=== PATIENT | female | born 1985 | race Caucasian/White ===

== ENCOUNTER 2016-11-03 13:14 | Outpatient (CLI) | payer OTHER ==
[~2016-11-03] VITALS: Ht 162.6 cm; Wt 136.5 kg
[~2016-11-03 13:14] MED LIST: FERR27TA; PREN-39
[2016-11-03 13:37] VITALS: Ht 162.6 cm; Wt 136.5 kg
--- NOTE | 2016-11-03 15:34 | RADRPT ---
PROCEDURE: US OB biophysical profile and ultrasound cervix. CLINICAL INDICATION: decreased movements, labor TECHNIQUE: Multiple sonographic images of the pelvis were obtained. The images were reviewed on a PACS workstation. Transvaginal images of the cervix were obtained. COMPARISON: No prior studies are available for comparison. FINDINGS: The cervix measures 3.7 cm in length. There is a trace amount of fluid within the cervix. There is a single viable intrauterine gestation. Cardiac activity is present with 156 beats per min [place]. There is a transverse maternal left presentation. The placenta is posterior. There is no evidence of placental abruption. There is a normal amount of amniotic fluid with an NJ = 10.1 cm. Biophysical profile: movement 2/2 tone 2/2. breathing 2/2 NJ 2/2 Total 05/23 RPTAT: AA . IMPRESSION: Normal biophysical profile. Cervix length measures 3.7 cm. . .Artur Baldwin MD, MD Date Time Electronically viewed and signed by .Artur Baldwin MD, on 11/03/2016 15:33 .S/
[2016-11-03 15:35] LABS: ADD UMIC YES; URINE BILIRUBIN (Dip) NEGATIVE (NEGATIVE); URINE BLOOD (Dip) 1+ (NEGATIVE); URINE COLOR YELLOW (YELLOW); URINE GLUCOSE (Dip) NEGATIVE (NEGATIVE); URINE KETONES (Dip) TRACE (NEGATIVE); URINE LEUKOCYTE ESTERASE (Dip) 3+ (NEGATIVE); URINE NITRITE (Dip) NEGATIVE (NEGATIVE); URINE TOTAL PROTEIN (Dip) NEGATIVE (NEGATIVE); URINE UROBILINOGEN (Dip) 0.2 E.U./dL (0.1-1.0)
[2016-11-03 15:36] LABS: EOSINOPHILS % 0.2 % (0.0-7.0); HEMATOCRIT 34.4 % (37.0-47.0); HEMOGLOBIN 11.7 g/dl (12.0-16.0); LYMPHOCYTES # 1.1 10^3/ul (0.8-2.9); LYMPHOCYTES % 9.9 % (15.0-51.0); MEAN CORPUSCULAR HEMOGLOBIN 29.8 pg (29.0-33.0); MEAN CORPUSCULAR HGB CONC 34.1 g/dl (32.0-37.0); MEAN CORPUSCULAR VOLUME 87.2 fl (82.0-101.0); MEAN PLATELET VOLUME 8.9 fl (7.4-10.4); MONOCYTE # 0.6 10^3/ul (0.3-0.9); MONOCYTES % 5.5 % (0.0-11.0); NEUTROPHIL # 9.8 10^3/ul (1.6-7.5); NEUTROPHILS % 84.4 % (39.0-77.0); PLATELET COUNT 211 10^3/UL (140-440); RED BLOOD COUNT 3.94 10^6/ul (4.20-5.40); RED CELL DISTRIBUTION WIDTH 14.2 % (11.5-14.5); UNCORRECTED WBC 11.6 10^3/ul (4.8-10.8); WHITE BLOOD COUNT 11.6 10^3/ul (4.8-10.8)
[2016-11-03 15:38] LABS: CONDITION 1
[2016-11-03 15:57] LABS: BACTERIA,URINE MANY; SQUAMOUS EPITHELIAL CELL,UR MANY
--- NOTE | 2016-11-03 17:08 | PN ---
Date/Time of Note Date/Time of Note DATE: 11/03/16 TIME: 16:53 OB Subjective Subjective Subjective Triage consult: This patient is a 31 years old 2 para 1. Came to triage area complaining of abdominal pain for about 2 hours. Her due date is January 16, 2017 which make her now 29 weeks and 3 days. She states that her pain started about an hour and a half ago mostly in her lower abdomen no vaginal bleeding no dysuria no other complete on examination her abdomen is soft heart tone is audible she is fairly obese presentation of the baby appears to be vertex. She did not have any CVA tenderness no rebound tenderness extremities were normal no edema no varicosities due to the fact that she did not have much of the contractions on the tracing pelvic examination was not performed on ultrasound study for biophysical profile was 8 out of 8. NJ was 10.1 cm. Cervical length was 3.7 cm her CBC were basically normal with a hemoglobin of 11.7 hematocrit of 34.4 WBC of 11.6 on urine exam her leukocyte esterase was 3+ urine blood was 1+ her vital signs were basically normal Disp: She was given Macrobid tablet 100 mg #20 to be taken 1 tablet every 12 hours. The urine was sent for urinalysis and culture and sensitivity to change her antibiotic in case of different sensitivity result. Laboratory Tests Test 11/03/16 14:05 11/03/16 15:20 Basophils # 0.010^3/ul Basophils % 0.0% Eosinophils # 0.010^3/ul Eosinophils % 0.2% Hematocrit 34.4% Hemoglobin 11.7g/dl Lymphocytes # 1.110^3/ul Lymphocytes % 9.9% Mean Corpuscular Hemoglobin 29.8pg Mean Corpuscular Hemoglobin Concent 34.1g/dl Mean Corpuscular Volume 87.2fl Mean Platelet Volume 8.9fl Monocytes # 0.610^3/ul Monocytes % 5.5% Neutrophils # 9.810^3/ul Neutrophils % 84.4% Nucleated Red Blood Cells # 0.010^3/ul Nucleated Red Blood Cells % 0.0/100WBC Platelet Count 41169^3/UL Red Blood Count 3.9410^6/ul Red Cell Distribution Width 14.2% White Blood Count 11.610^3/ul Urine Bacteria MANY Urine Bilirubin NEGATIVE Urine Clarity CLOUDY Urine Color YELLOW Urine Glucose NEGATIVE% Urine Hemoglobin 1+ Urine Ketones TRACE Urine Leukocyte Esterase 3+ Urine Microscopic RBC 2-5/HPF Urine Microscopic WBC >200/HPF Urine Nitrite NEGATIVE Urine Specific [place] 1.010 Urine Squamous Epithelial Cells MANY Urine Total Protein NEGATIVE Urine Urobilinogen 0.2 E.U./dL Urine pH 6.0 Due to the fact that she did not have any contractions she was discharged home with instruction to rest at home and return to the clinic to be 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
== END 2016-11-03 17:00 | disposition home or self-care (01) ==
LOC: OBT 13:14 → L-D 13:15 → OBT 17:00
PROVIDERS: ATTEND Obstetrics & Gynecology
DX: O46.93 Antepartum hemorrhage, unspecified, third trimester (principal); O26.893 Other specified pregnancy related conditions, third trimester; R10.9 Unspecified abdominal pain; Z3A.29 29 weeks gestation of pregnancy
CPT/HCPCS: 36415; 76817; 76818; 81001; 81003; 85025; 87086; G0463

== ENCOUNTER 2016-11-27 22:06 | Inpatient (IN) | payer OTHER ==
[~2016-11-27] VITALS: Ht 160 cm; Wt 136.0 kg
[2016-11-27 22:17] VITALS: BP 122/73; PULSE 74; RESP 18
[2016-11-27] MEDS ORDERED: ONDANSETRON 4 MG INJ IV STA (22:23)
[2016-11-27] MEDS ORDERED: LACTATED RINGER'S 1,000 ML IV SCH (22:23)
[2016-11-27 22:28] VITALS: Ht 160 cm; Wt 136.0 kg
[2016-11-27] MEDS ORDERED: ACETAMINOPHEN 1000MG/100ML IV 100 ML IVPB ONE (22:30)
[2016-11-27 23:02] LABS: BASOPHILS % 0.2 % (0.0-2.0); EOSINOPHILS % 0.5 % (0.0-7.0); HEMATOCRIT 33.9 % (37.0-47.0); HEMOGLOBIN 11.6 g/dl (12.0-16.0); LYMPHOCYTES # 1.4 10^3/ul (0.8-2.9); LYMPHOCYTES % 14.8 % (15.0-51.0); MEAN CORPUSCULAR HEMOGLOBIN 30.1 pg (29.0-33.0); MEAN CORPUSCULAR HGB CONC 34.2 g/dl (32.0-37.0); MEAN PLATELET VOLUME 9.3 fl (7.4-10.4); MONOCYTE # 0.7 10^3/ul (0.3-0.9); MONOCYTES % 7.7 % (0.0-11.0); NEUTROPHIL # 7.1 10^3/ul (1.6-7.5); NEUTROPHILS % 76.8 % (39.0-77.0); PLATELET COUNT 203 10^3/UL (140-440); RED BLOOD COUNT 3.86 10^6/ul (4.20-5.40); RED CELL DISTRIBUTION WIDTH 14.4 % (11.5-14.5); UNCORRECTED WBC 9.2 10^3/ul (4.8-10.8); WHITE BLOOD COUNT 9.2 10^3/ul (4.8-10.8)
[2016-11-27 23:03] LABS: CONDITION 1
[2016-11-27 23:06] LABS: ADD UMIC YES; URINE BILIRUBIN (Dip) 3+ (NEGATIVE); URINE BLOOD (Dip) NEGATIVE (NEGATIVE); URINE COLOR AMBER (YELLOW); URINE GLUCOSE (Dip) NEGATIVE (NEGATIVE); URINE KETONES (Dip) TRACE (NEGATIVE); URINE LEUKOCYTE ESTERASE (Dip) 2+ (NEGATIVE); URINE TOTAL PROTEIN (Dip) TRACE (NEGATIVE); URINE UROBILINOGEN (Dip) 1.0 E.U./dL (0.1-1.0)
[2016-11-27 23:24] LABS: ICTOTEST POSITIVE (NEGATIVE)
[2016-11-27 23:25] LABS: URINE NITRITE (Dip) NEGATIVE (NEGATIVE)
[2016-11-27 23:27] LABS: SQUAMOUS EPITHELIAL CELL,UR MODERATE; URINE RBCS 0-2 /HPF (0)
--- NOTE | 2016-11-27 23:41 | RADRPT ---
PROCEDURE: US Abdomen Limited. CLINICAL INDICATION: Right upper quadrant pain TECHNIQUE: Multiple real-time longitudinal and transverse images were acquired of the patient's ri t abdomen and retroperitoneum utilizing a curved array transducer. COMPARISON: None FINDINGS: Pancreas: The pancreas is suboptimally visualized. Liver: There is mild increased echogenicity of the liver with a coarse echotexture. The right hepa tic lobe measures 19.1 cm craniocaudal, which is mildly enlarged. There is no definite focal lesion visualized in the liver. Bile ducts: The intrahepatic bile ducts are not dilated. Common bile duct measures 3.[address], within normal limits. Gallbladder: There are a few small gallstones within the gallbladder. There is no gallbladder wall thickening, pericholecystic fluid, or sonographic [place]'s sign. Kidneys: The right kidney measures 12.2 cm in length. The parenchymal echogenicity and thickness ap pear within normal range. No focal lesions are visualized. No hydronephrosis. There is no ascites visualized in the right abdomen. RPTAT: ZZ IMPRESSION: 1. Cholelithiasis. 2. Mild fatty infiltration of the liver with mild hepatomegaly. .Christiane Monroy MD, Date Time Electronically viewed and signed by .Christiane Monroy MD, on 11/27/2016 23:40 .T/
[2016-11-27 23:44] LABS: ALBUMIN 3.4 g/dl (3.3-4.9); POTASSIUM 3.9 mmol/L (3.5-5.1)
[2016-11-27 23:47] LABS: BILIRUBIN,DIRECT 0.9 mg/dl (0.00-0.20); BILIRUBIN,INDIRECT 0.8 mg/dl (0-1.1); BILIRUBIN,TOTAL 1.7 mg/dl (0.2-1.3); CREATININE 0.42 mg/dl (0.44-1.00); TOTAL PROTEIN 6.8 g/dl (6.1-8.1)
[2016-11-28] MEDS ORDERED: NITR-58 PO (00:49)
[2016-11-28] MEDS ORDERED: UDMYL PO (00:49)
[2016-11-28] MEDS ORDERED: ONDANSETRON 4 MG INJ IV PRN (02:30)
--- NOTE | 2016-11-28 02:37 | HP ---
Date/Time of Note Date/Time of Note DATE: 11/28/16 TIME: 02:26 OB - History Hx of Present Free Text/Dictation Laborist Dr Qiu's pt 31 y.o. with an IUP at 33 weeks c/o RUQ pain x 2 days with nausea and vomiting x 2. No CASTRO, visual changes, vaginal bleeding or leaking.Pt reports she has a UTI but stopped taking the medication since Monday due to not feeling well. PMHx: none. PSHx: none. NKDA. Chief Complaint: Right upper quadrant pain, Nausea/vomiting, IUP at 33 weeks. UTI. Estimated Due Date: Jan 16, 2017 : 2 Para: 1 Care: Other (prenatals not available) Ultrasounds: Other (prenatals not available) Medical Complications: None (gallstones) Past Family/Social History * Past Medical, Surgical, Family and Obstetric Histories reviewed from pt. Prenatals not available. OB Admission Exam Vital Signs Vital Signs Vital Signs Date Time Temp Pulse Resp B/P Pulse Ox O2 Delivery O2 Flow Rate FiO2 11/27/16 22:17 97.7 74 18 122/73 Room Air Physical Exam HEENT: WNL Heart: Rhythm Normal Lungs: Clear Abdomen: Abnormal (slightly tender in RUQ) Reflexes: Normal Last 72 hours Lab Results CBC & BMP 11/27/16 22:40 Liver Function Test 11/27/16 22:40 Alanine Aminotransferase (ALT/SGPT) 39 Albumin 3.4 Alkaline Phosphatase 118 Aspartate Amino Transf (AST/SGOT) 50 H Direct Bilirubin 0.90 H Total Protein 6.8 OB Assessment/Plan Reason for admission: other (IUP at 33 weeks. Gallstones. Hyperbilirubinemia.Undertreated UTI.) Other plan: IV hydration. Pain management. Repeat labs. IV treatment of UTI. Low fat diet. IV Tylenol prn. DANTE MANCUSO MD Nov 28, 2016 02:36
--- NOTE | 2016-11-28 02:54 | TRIAGE ---
OB Triage Datetime Report Generated by CPN: 11/28/2016 02:53 Datetime: 11/28/2016 02:23 Vaginal Exam Membrane Status: Intact Datetime: 11/28/2016 02:20 Stage of : OB Triage Datetime: 11/28/2016 01:00 Labor Evaluation Frequency: NONE Monitor Mode: External Duration (sec)2399: NONE Pattern: Normal: <= 5 Contractions in 10 Minutes Heart Rate FHR Baseline Rate: 130 Monitor Mode: External US FHR Baseline Changes: No Baseline Change Variability: Moderate 6-25 bpm Accelerations: 15X15 Decelerations: None Category: Category I Datetime: 11/28/2016 00:31 Monitor Mode: External US Datetime: 11/28/2016 00:19 Monitor Mode: Palpation Resting Tone [place]: Relaxed Datetime: 11/28/2016 00:18 Monitor Mode: External Monitor Mode: External US Datetime: 11/28/2016 00:17 Pain Presence: None/Denies Pain Type: N/A Pain Assessment Comments: PT. STATES PAIN MEDS WERE EFFECTIVE Datetime: 11/28/2016 00:00 Labor Evaluation Frequency: NONE Monitor Mode: External Duration (sec)2399: NONE Pattern: Normal: <= 5 Contractions in 10 Minutes Heart Rate FHR Baseline Rate: 140 Monitor Mode: External US FHR Baseline Changes: No Baseline Change Variability: Moderate 6-25 bpm Accelerations: 15X15 Decelerations: None Category: Category I Datetime: 11/27/2016 23:41 Pain Assessment Comments: PT. SLEEPING, AROUSABLE TO TOUCH Datetime: 11/27/2016 23:11 Monitor Mode: External US Pain Assessment Pain Scale: 7 Pain Presence: Constant Pain Type: Sharp; Stabbing Pain Relief Measures: Pain Medication Given Datetime: 11/27/2016 23:00 Labor Evaluation Frequency: NONE Monitor Mode: External Duration (sec)2399: NONE Pattern: Normal: <= 5 Contractions in 10 Minutes Heart Rate FHR Baseline Rate: 140 Monitor Mode: External US FHR Baseline Changes: No Baseline Change Variability: Moderate 6-25 bpm Accelerations: 15X15 Decelerations: None Category: Category I Datetime: 11/27/2016 22:18 Assessment Type: Triage Maternal Assessment Level of Consciousness: Fully Conscious DTR's/Clonus: DTRs 2+; No Clonus Headache: Denies Blurred Vision: No Respiratory Effort: Unlabored; Regular Rhythm; Equal Expansion Breath Sounds, Left: Clear and Equal Breath Sounds, Right: Clear and Equal Nausea/Vomiting: Denies RUQ Epigastric Pain: Denies Lower Extremities Edema: None Upper Extremities Edema: None Facial Edema: None Fall Risk Assessment History of Falling: (0) No Secondary Diagnosis: (0) No Ambulatory Aid: (0) Bedrest/Nurse Assist IV Therapy: (0) No Gait: (0) Normal/Bedrest/Immobile Mental Status: (0) Oriented to Own Ability Fall Score: 0 Fall Risk Score Definition: No Risk: No action required Datetime: 11/27/2016 22:15 Monitor Mode: Palpation Resting Tone [place]: Relaxed Contraction Comments: ABD SOFT WITH PALPATION. PT. HAS TENDERNESS OVER RUQ Datetime: 11/27/2016 22:14 Monitor Mode: External (Annotations: MONITORS APPLIED) Monitor Mode: External US (Annotations: MONITORS APPLIED) Datetime: 11/27/2016 22:08 Time of Arrival: 11/27/2016 21:58 EGA: 32.6 Arrived By: Wheelchair Arrived From: Home Chief Complaint: RUQ PAIN SINCE MONDAY Movement: Present Contractions: Denies/Absent Rupture of Membranes: Denies Vaginal Bleeding: None Vaginal Discharge: Denies Recent Sexual Intercouse: Denies Abdominal Trauma: Not Applicable Patient Complaints: Nausea; Vomiting; Epigastric Pain Additional Patient Complaints: N/V X2 Time Provider Notified: 11/27/2016 22:09 Provider Notified: REJANETE Initial Plan: EFM, IV HYDRATION, Datetime: 11/03/2016 16:42 Stage of : OB Triage Datetime: 11/03/2016 16:35 Labor Evaluation Frequency: 0 Monitor Mode: External Resting Tone [place]: Relaxed Heart Rate FHR Baseline Rate: 135 Monitor Mode: External US Variability: Moderate 6-25 bpm Decelerations: None Category: Category I Pain Assessment Pain Scale: 0 Pain Presence: None/Denies Pain Type: N/A Pain Goal: 3 Pain Relief Measures: Comfort Measures Datetime: 11/03/2016 16:01 Stage of : OB Triage Datetime: 11/03/2016 15:46 Labor Evaluation Frequency: 0 Monitor Mode: External Resting Tone [place]: Relaxed Heart Rate FHR Baseline Rate: 135 Monitor Mode: External US Variability: Moderate 6-25 bpm Accelerations: 10X10 Decelerations: None Category: Category I Pain Assessment Pain Scale: 2 Pain Presence: Constant Pain Type: Cramping Pain Location: Abdomen Pain Goal: 3 Pain Relief Measures: Comfort Measures Datetime: 11/03/2016 14:32 Labor Evaluation Frequency: 0 Monitor Mode: External Resting Tone [place]: Relaxed Heart Rate FHR Baseline Rate: 135 Monitor Mode: External US Variability: Moderate 6-25 bpm Decelerations: None Category: Category I Pain Assessment Pain Scale: 3 Pain Presence: Constant Pain Type: Cramping Pain Goal: 3 Pain Relief Measures: Comfort Measures Datetime: 11/03/2016 13:59 Stage of : OB Triage Datetime: 11/03/2016 13:32 Stage of : OB Triage Assessment Type: Triage Maternal Assessment Level of Consciousness: Fully Conscious DTR's/Clonus: DTRs 2+; No Clonus Headache: Denies Blurred Vision: No Respiratory Effort: Unlabored; Regular Rhythm; Equal Expansion Breath Sounds, Left: Clear and Equal Breath Sounds, Right: Clear and Equal Nausea/Vomiting: Denies RUQ Epigastric Pain: Denies Lower Extremities Edema: None Degree: None Upper Extremities Edema: None Degree: None Facial Edema: None Temperature Route: Axillary Fall Risk Assessment History of Falling: (0) No Secondary Diagnosis: (0) No Ambulatory Aid: (0) Bedrest/Nurse Assist IV Therapy: (0) No Gait: (0) Normal/Bedrest/Immobile Mental Status: (0) Oriented to Own Ability Fall Score: 0 Fall Risk Score Definition: No Risk: No action required Labor Evaluation Frequency: 0 Monitor Mode: External Pattern: Normal: <= 5 Contractions in 10 Minutes Resting Tone [place]: Relaxed Heart Rate FHR Baseline Rate: 145 (Annotations: DIFFCULTY TRACING FHT DUE TO GEST AGE AND MATERNAL ) Monitor Mode: External US Variability: Moderate 6-25 bpm Decelerations: None Pain Assessment Pain Scale: 5 Pain Presence: Constant Pain Type: Cramping Pain Location: Abdomen Pain Goal: 3 Pain Relief Measures: Comfort Measures Datetime: 11/03/2016 13:23 Time of Arrival: 11/03/2016 13:00 EGA: 29.3 Chief Complaint: ABDOMINAL PAIN X 1 HR CONSTANT, DENIES BLEEDING OR LEAKING Movement: Present Contractions: Denies/Absent Rupture of Membranes: Denies Vaginal Discharge: Denies Recent Sexual Intercouse: Yes Abdominal Trauma: Not Applicable Patient Complaints: Cramping Time Provider Notified: 11/03/2016 13:59 Provider Notified: RUPAL Initial Plan: MONITOR, CBC, U/A, BPP/NJ, CL
[2016-11-28] MEDS: LACTATED RINGER'S 1,000 ML IV SCH ×3 (03:14→19:00)
[2016-11-28] MEDS: CEFAZOLIN 2 GM/50 ML (PMX) 50 ML IV SCH ×2 (03:18→14:07)
[2016-11-28] MEDS: ACETAMINOPHEN 1000MG/100ML IV 100 ML IVPB SCH ×3 (05:47→18:11)
[2016-11-28] MEDS ORDERED: MULTIVIT/MIN/FOLATE/IRON/PREN TAB PO SCH (09:00)
[2016-11-28 11:31] LABS: BASOPHILS % 0.3 % (0.0-2.0); CONDITION 1; EOSINOPHILS # 0.1 10^3/ul (0.0-0.5); EOSINOPHILS % 0.7 % (0.0-7.0); HEMOGLOBIN 10.9 g/dl (12.0-16.0); LYMPHOCYTES # 1.3 10^3/ul (0.8-2.9); LYMPHOCYTES % 17.1 % (15.0-51.0); MEAN CORPUSCULAR VOLUME 88.1 fl (82.0-101.0); MEAN PLATELET VOLUME 8.9 fl (7.4-10.4); MONOCYTE # 0.5 10^3/ul (0.3-0.9); NEUTROPHIL # 5.9 10^3/ul (1.6-7.5); NEUTROPHILS % 74.9 % (39.0-77.0); PLATELET COUNT 180 10^3/UL (140-440); RED BLOOD COUNT 3.64 10^6/ul (4.20-5.40); RED CELL DISTRIBUTION WIDTH 14.2 % (11.5-14.5); UNCORRECTED WBC 7.8 10^3/ul (4.8-10.8); WHITE BLOOD COUNT 7.8 10^3/ul (4.8-10.8)
[2016-11-28 11:52] LABS: ALBUMIN/GLOBULIN RATIO 1.03; BILIRUBIN,DIRECT 0.8 mg/dl (0.00-0.20); BILIRUBIN,INDIRECT 0.8 mg/dl (0-1.1); BILIRUBIN,TOTAL 1.6 mg/dl (0.2-1.3); CREATININE 0.5 mg/dl (0.44-1.00); TOTAL PROTEIN 5.9 g/dl (6.1-8.1)
[2016-11-28] MEDS ORDERED: AL HYDROX/MG HYDROX/SIMETH 30 ML CUP PO PRN ×2 (15:00→17:30)
[2016-11-28] MEDS ORDERED: FAMOTIDINE 20 MG INJ IV SCH (16:00)
[2016-11-28] MEDS ORDERED: RANITIDINE 50 MG in SOD CHLORIDE 0.9% 50 ML IVPB SCH (16:00)
[2016-11-28 17:21] LABS: ADD UMIC YES; URINE BILIRUBIN (Dip) 1+ (NEGATIVE); URINE BLOOD (Dip) NEGATIVE (NEGATIVE); URINE COLOR LT. YELLOW (YELLOW); URINE GLUCOSE (Dip) NEGATIVE (NEGATIVE); URINE KETONES (Dip) TRACE (NEGATIVE); URINE LEUKOCYTE ESTERASE (Dip) 2+ (NEGATIVE); URINE NITRITE (Dip) NEGATIVE (NEGATIVE); URINE TOTAL PROTEIN (Dip) NEGATIVE (NEGATIVE); URINE UROBILINOGEN (Dip) 0.2 E.U./dL (0.1-1.0)
[2016-11-28 17:31] LABS: ICTOTEST POSITIVE (NEGATIVE); SQUAMOUS EPITHELIAL CELL,UR MODERATE; URINE RBCS 0-2 /HPF (0)
--- NOTE | 2016-11-28 19:05 | DS ---
Date/Time of Note Date/Time of Note DATE: 11/28/16 TIME: 19:03 Obstetrical Discharge Record Final Diagnosis Final Diagnosis: not delivered Other Final Diagnosis gallstones Complications Other (Gallstones ) Condition on Discharge Physical Assessment Last Vitals: see nurses notes Voiding: Yes Bowel Movement: Yes Breast: Soft, non-tender, Filling Fundus: Other (gravid) Abdomen and Incision: soft BS + Episiotomy: NA Calf Tenderness: No Patient Condition: Good JEREMIAH AGUILAR MD Nov 28, 2016 19:05
--- NOTE | 2016-11-28 19:07 | DS ---
Date/Time of Note Date/Time of Note DATE: 11/28/16 TIME: 19:05 Discharge Summary Admission/Discharge Info Admit Date/Time Nov 28, 2016 at 02:20 Discharge Date/Time 11/28/2016 Final Diagnosis Gallstones cholelithiasis Patient Condition: Good Consults dietitian for low fat diet Procedures None Hx of Present Illness 31 y/o female admitted with cholelithiasis and had symptomatic treatment Hospital Course uncomplicated Home Meds Reported Medications Nitrofurantoin Monohyd Macrocr* (Macrobid*) 100 Mg Capsr, 100 MG PO BID, CAP 11/28/16 Magaldrate/Simethicone* (Mag-Al Plus Suspension*) 30 Ml Oral.susp, 30 ML PO Q6H Y for GASTROINTESTINAL UPSET, ML 11/28/16 Ferrous Sulfate (Iron) 1 Tab Tablet 03/30/11 Vits W-Ca,Fe,Fa(<1MG) ( Vitamins) 1 Tab Tablet 03/30/11 Follow-up Plan in clinic for PNC Pending Labs Laboratory Tests Test 11/27/16 22:40 11/28/16 11:09 11/28/16 17:00 Alanine Aminotransferase (ALT/SGPT) 39IU/L (13-69) 48IU/L (13-69) Albumin 3.4g/dl (3.3-4.9) 3.0g/dl (3.3-4.9) Albumin/Globulin Ratio 1.00 1.03 Alkaline Phosphatase 118IU/L (42-121) 108IU/L (42-121) Amylase Level 50U/L (11-123) 34U/L (11-123) Anion Gap 15 (8-16) 12 (8-16) Aspartate Amino Transf (AST/SGOT) 50IU/L (15-46) 49IU/L (15-46) Basophils # 0.010^3/ul (0.0-0.1) 0.010^3/ul (0.0-0.1) Basophils % 0.2% (0.0-2.0) 0.3% (0.0-2.0) Blood Urea Nitrogen 5mg/dl (7-20) 4mg/dl (7-20) Calcium Level 9.0mg/dl (8.4-10.2) 9.0mg/dl (8.4-10.2) Carbon Dioxide Level 23mmol/L (21-31) 25mmol/L (21-31) Chloride Level 104mmol/L (97-110) 105mmol/L (97-110) Creatinine 0.42mg/dl (0.44-1.00) 0.50mg/dl (0.44-1.00) Direct Bilirubin 0.90mg/dl (0.00-0.20) 0.80mg/dl (0.00-0.20) Eosinophils # 0.010^3/ul (0.0-0.5) 0.110^3/ul (0.0-0.5) Eosinophils % 0.5% (0.0-7.0) 0.7% (0.0-7.0) Globulin 3.40g/dl (1.3-3.2) 2.90g/dl (1.3-3.2) Glucose Level 95mg/dl (70-220) 91mg/dl (70-220) Hematocrit 33.9% (37.0-47.0) 32.0% (37.0-47.0) Hemoglobin 11.6g/dl (12.0-16.0) 10.9g/dl (12.0-16.0) Indirect Bilirubin 0.8mg/dl (0-1.1) 0.8mg/dl (0-1.1) Lipase 38U/L (23-300) 28U/L (23-300) Lymphocytes # 1.410^3/ul (0.8-2.9) 1.310^3/ul (0.8-2.9) Lymphocytes % 14.8% (15.0-51.0) 17.1% (15.0-51.0) Mean Corpuscular Hemoglobin 30.1pg (29.0-33.0) 30.0pg (29.0-33.0) Mean Corpuscular Hemoglobin Concent 34.2g/dl (32.0-37.0) 34.0g/dl (32.0-37.0) Mean Corpuscular Volume 88.0fl (82.0-101.0) 88.1fl (82.0-101.0) Mean Platelet Volume 9.3fl (7.4-10.4) 8.9fl (7.4-10.4) Monocytes # 0.710^3/ul (0.3-0.9) 0.510^3/ul (0.3-0.9) Monocytes % 7.7% (0.0-11.0) 7.0% (0.0-11.0) Neutrophils # 7.110^3/ul (1.6-7.5) 5.910^3/ul (1.6-7.5) Neutrophils % 76.8% (39.0-77.0) 74.9% (39.0-77.0) Nucleated Red Blood Cells # 0.010^3/ul (0.0-0.0) 0.010^3/ul (0.0-0.0) Nucleated Red Blood Cells % 0.0/100WBC (0.0-0.0) 0.0/100WBC (0.0-0.0) Platelet Count 73517^3/UL (140-440) 95272^3/UL (140-440) Potassium Level 3.9mmol/L (3.5-5.1) 4.0mmol/L (3.5-5.1) Red Blood Count 3.8610^6/ul (4.20-5.40) 3.6410^6/ul (4.20-5.40) Red Cell Distribution Width 14.4% (11.5-14.5) 14.2% (11.5-14.5) Sodium Level 138mmol/L (135-144) 138mmol/L (135-144) Total Bilirubin 1.7mg/dl (0.2-1.3) 1.6mg/dl (0.2-1.3) Total Protein 6.8g/dl (6.1-8.1) 5.9g/dl (6.1-8.1) Urine Amorphous Urates MODERATE Urine Bilirubin 3+ (NEGATIVE) 1+ (NEGATIVE) Urine Clarity SLIGHTLY CLOUDY (CLEAR) CLEAR (CLEAR) Urine Color RADHA (YELLOW) LT. YELLOW (YELLOW) Urine Glucose NEGATIVE% (NEGATIVE) NEGATIVE% (NEGATIVE) Urine Hemoglobin NEGATIVE (NEGATIVE) NEGATIVE (NEGATIVE) Urine Ictotest POSITIVE (NEGATIVE) POSITIVE (NEGATIVE) Urine Ketones TRACE (NEGATIVE) TRACE (NEGATIVE) Urine Leukocyte Esterase 2+ (NEGATIVE) 2+ (NEGATIVE) Urine Microscopic RBC 0-2/HPF (0) 0-2/HPF (0) Urine Microscopic WBC 2-5/HPF (0) 10-25/HPF (0) Urine Nitrite NEGATIVE (NEGATIVE) NEGATIVE (NEGATIVE) Urine Specific [place] 1.025 (1.003-1.030) 1.010 (1.003-1.030) Urine Squamous Epithelial Cells MODERATE MODERATE Urine Total Protein TRACE (NEGATIVE) NEGATIVE (NEGATIVE) Urine Urobilinogen 1.0 E.U./dL (0.1-1.0) 0.2 E.U./dL (0.1-1.0) Urine pH 7.5 (5.0-9.0) 7.5 (5.0-9.0) White Blood Count 9.210^3/ul (4.8-10.8) 7.810^3/ul (4.8-10.8) JEREMIAH AGUILAR MD Nov 28, 2016 19:07
--- NOTE | 2016-11-28 19:10 | PD.PPDC ---
[employer] Discharge Instruction Provider Information Physician Information 31 y/o femlae admitted for cholelithiasis and had symptomatic treatment Diagnosis Final Diagnosis: cholelithiasis Condition Patient Condition: Good Diet Diet: Special Diet Special Diet: low fat and low cholesterol Activity/Restrictions Activity: Normal Activity May Shower Follow-up Follow-up with Physician: 2, 4, Day/Days (in clinic) Return to clinic for Comment: worsening abdominal paind and N/V JEREMIAH AGUILAR MD Nov 28, 2016 19:10
== END 2016-11-28 20:15 | disposition home or self-care (01) | DRG 781 ==
LOC: OBT 22:06 → L-D 22:07 → OBT 11-28 02:20 → OBG 11-28 02:20
PROVIDERS: ADMIT Obstetrics & Gynecology; ATTEND Obstetrics & Gynecology
DX: O99.613 Diseases of the digestive system complicating pregnancy, third trimester (principal); Z3A.30 30 weeks gestation of pregnancy
CPT/HCPCS: 36415; 76705; 80053; 81001; 81003; 82150; 83690; 85025; 96360; 96361; 96375; G0463; J0131; J0690; J2405; J2780; J7120

== ENCOUNTER 2016-12-05 04:12 | Inpatient (IN) | payer OTHER ==
[~2016-12-05] VITALS: Ht 160 cm; Wt 134.0 kg
[~2016-12-05 04:12] MED LIST changes: +UDMYL PO
[2016-12-05 04:18] VITALS: BP 114/64; PULSE 83; RESP 18; Ht 160 cm; Wt 134.0 kg
[2016-12-05] MEDS ORDERED: CALC200T26 PO (04:24)
[2016-12-05] MEDS ORDERED: FAMO-95 PO (04:24)
[2016-12-05] MEDS ORDERED: ACET500T98 PO (04:24)
[2016-12-05] MEDS ORDERED: KETOROLAC 30 MG INJ IV STA (04:56)
[2016-12-05] MEDS ORDERED: LACTATED RINGER'S 500 ML IV ONE (05:00)
[2016-12-05] MEDS ORDERED: ACETAMINOPHEN 1000MG/100ML IV 100 ML IVPB ONE (05:00)
[2016-12-05] MEDS ORDERED: LACTATED RINGER'S 1,000 ML IV SCH (05:00)
[2016-12-05 07:59] LABS: ALBUMIN 3.4 g/dl (3.3-4.9); POTASSIUM 4.2 mmol/L (3.5-5.1)
[2016-12-05 08:01] LABS: CREATININE 0.48 mg/dl (0.44-1.00)
[2016-12-05 08:02] LABS: ALBUMIN/GLOBULIN RATIO 1.03; BILIRUBIN,DIRECT 1.7 mg/dl (0.00-0.20); BILIRUBIN,INDIRECT 0.6 mg/dl (0-1.1); BILIRUBIN,TOTAL 2.3 mg/dl (0.2-1.3); CALCIUM 9.2 mg/dl (8.4-10.2); TOTAL PROTEIN 6.7 g/dl (6.1-8.1)
[2016-12-05] MEDS: LACTATED RINGER'S 1,000 ML IV SCH ×2 (08:30→16:17)
[2016-12-05] MEDS ORDERED: MEPERIDINE 50 MG INJ IV PRN (11:30)
[2016-12-05] MEDS ORDERED: AL HYDROX/MG HYDROX/SIMETH 30 ML CUP PO PRN (11:30)
[2016-12-05] MEDS: FAMOTIDINE 20 MG INJ IV SCH ×2 (11:49→21:07)
--- NOTE | 2016-12-05 12:36 | RADRPT ---
PROCEDURE: US Abdomen. CLINICAL INDICATION: abdominal pain TECHNIQUE: Multiple real-time images were acquired of the patient's right upper quadrant abdomen a nd retroperitoneum utilizing a high resolution transducer. COMPARISON: 11/27/2016 FINDINGS: The liver demonstrates normal echogenicity. The liver is normal in size and no focal solid lesions are seen. The liver measures 17.6 cm in length. The portal vein is patent with normal direction of f low. No intrahepatic biliary dilatation is seen. The gallbladder is moderately distended. Multiple gallstones are identified within the gallbladder. There is no pericholecystic fluid or gallbladder wall thickening. The common bile duct measures 10 mm in maximal dimension. The visualized portions of the pancreas are unremarkable. The tail of the pancreas is not seen. No free fluid is identified. The right kidney is normal in size, and demonstrate normal echogenicity and cortical thickness. The right kidney measures 12 cm in long dimension. There is no evidence of hydronephrosis. There are n o kidney stones. RPTAT: AA IMPRESSION: Cholelithiasis with no evidence of gallbladder wall thickening or pericholecystic fluid. New dilatation of the CBD measuring 10 mm. .Artur Baldwin MD, Date Time Electronically viewed and signed by .Artur Baldwin MD, MD on 12/05/2016 12:35 .S/
[2016-12-05 13:05] LABS: BASOPHILS % 0.3 % (0.0-2.0); EOSINOPHILS # 0.1 10^3/ul (0.0-0.5); EOSINOPHILS % 0.8 % (0.0-7.0); HEMATOCRIT 34.1 % (37.0-47.0); HEMOGLOBIN 11.6 g/dl (12.0-16.0); LYMPHOCYTES # 1.2 10^3/ul (0.8-2.9); LYMPHOCYTES % 16.3 % (15.0-51.0); MEAN CORPUSCULAR VOLUME 88.3 fl (82.0-101.0); MEAN PLATELET VOLUME 8.4 fl (7.4-10.4); MONOCYTE # 0.5 10^3/ul (0.3-0.9); MONOCYTES % 7.1 % (0.0-11.0); NEUTROPHIL # 5.4 10^3/ul (1.6-7.5); NEUTROPHILS % 75.5 % (39.0-77.0); PLATELET COUNT 185 10^3/UL (140-440); RED BLOOD COUNT 3.86 10^6/ul (4.20-5.40); RED CELL DISTRIBUTION WIDTH 14.8 % (11.5-14.5); UNCORRECTED WBC 7.1 10^3/ul (4.8-10.8); WHITE BLOOD COUNT 7.1 10^3/ul (4.8-10.8)
[2016-12-05 13:08] LABS: CONDITION 1; LH ANALYZER COMMENTS 1
[2016-12-05] MEDS ORDERED: MAGNESIUM SULFATE 20 GM/500 ML 500 ML IV SCH (17:58)
--- NOTE | 2016-12-05 17:58 | HP ---
Date/Time of Note Date/Time of Note DATE: 12/05/16 TIME: 17:49 OB - History Hx of Present Free Text/Dictation 31 y/o female G 1 P0 at 34 weeks C/O gradual worsening R upper quadrant abdominal pain since Monday associated with N/V for the first day . Pain became worse and worse until her referral on 12/04/2016 to Triage Chief Complaint: Patient onset vaginal bleeding on return from bathroom Estimated Due Date: Jan 16, 2017 : 2 Para: 1 Care: Good Care Ultrasounds: Normal mid trimester US Obstetrical Complications: Other (previous C/S X 1 ) Medical Complications: Other (Gallstones and cholelithiasis) Past Family/Social History * Past Medical, Surgical, Family and Obstetric Histories reviewed from chart. Blood Type: A+ Rubella: immune RPR/VDRL: Negative GBS Status: Unknown HBsAG: Negative OB Admission Exam Vital Signs Vital Signs Vital Signs Date Time Temp Pulse Resp B/P Pulse Ox O2 Delivery O2 Flow Rate FiO2 12/05/16 04:18 97.8 83 18 114/64 Room Air Physical Exam HEENT: WNL Heart: Rhythm Normal Lungs: Clear, Equal Abdomen: WNL Extremities: Normal Reflexes: Normal Cervical Dilatation: None Effacement: 0% Station: -3 Membranes: Intact Heart Rate: 150's Accelerations: Accelerations Present Decelerations: No Decelerations Varibility: Moderate Contractions on Admission: None Last 72 hours Lab Results CBC & BMP 12/05/16 07:38 12/05/16 12:41 Liver Function Test 12/05/16 07:38 Alanine Aminotransferase (ALT/SGPT) 116 H Albumin 3.4 Alkaline Phosphatase 150 H Aspartate Amino Transf (AST/SGOT) 136 H Direct Bilirubin 1.70 H Total Protein 6.7 OB Assessment/Plan Other Assessment: cholelithiasis at 34 weeks abrupt onset of vaginal bleeding ? abruption Other plan: Start on magnesium sulfate keep NPO sor NOW change IV to D5 LR JEREMIAH AGUILAR MD Dec 05, 2016 17:58
[2016-12-05] MEDS ORDERED: BETAMET NA PHOS/AC(6 MG/ML) 5ML INJ IM SCH (18:00)
[2016-12-05] MEDS ORDERED: MAGNESIUM SULFATE 4 GM/100 ML 100 ML IV ONE ×2 (18:00)
[2016-12-05] MEDS ORDERED: ACETAMINOPHEN 325 MG TAB PO PRN (18:00)
[2016-12-05] MEDS: DEXTROSE 5%-LR 1,000 ML IV SCH (18:09)
[2016-12-05] MEDS: BETAMET NA PHOS/AC(6 MG/ML) 5ML INJ IM SCH (18:15)
[2016-12-05] MEDS: MAGNESIUM SULFATE 20 GM/500 ML 500 ML IV SCH (18:17)
[2016-12-05] MEDS ORDERED: SENNA TAB PO PRN (21:00)
[2016-12-05] MEDS: MAGNESIUM HYDROXIDE 30ML CUP PO SCH (21:07)
[2016-12-05] MEDS: PIPER-TAZO 3.375 GM IV (PMX) 100 ML IVPB SCH (22:07)
--- NOTE | 2016-12-05 23:25 | RADRPT ---
PROCEDURE: US biophysical profile. CLINICAL INDICATION: labor, bleeding TECHNIQUE: Multiple sonographic images of the pelvis were obtained. The images were reviewed on a PACS workstation. COMPARISON: No prior studies are available for comparison. FINDINGS: There is a single viable intrauterine gestation. The amniotic fluid index measures 10.1 cm. The ce rvix is measured at 3.7 cm, without funneling or dilation. The heart rate measures 157 beats per minute. There is a posterior placenta, grade 1 to II. The air fluid index is within normal virk its, 10.1 cm. Results of the biophysical profile are as follows breathing movement = 2/2 Gross body movement = 2/2 tone = 2/2 Quantitative amniotic fluid volume = 2/2. This yields a biophysical profile score of 8/8. IMPRESSION: Single viable intrauterine gestation, with biophysical profile of 8/8. Amniotic fluid index, 10.1 cm . RPTAT: HBST .Tommy Cm MD, Date Time Electronically viewed and signed by .Tommy Cm MD, MD on 12/05/2016 23:25 .T/
[2016-12-06] MEDS: LACTATED RINGER'S 1,000 ML IV SCH (00:05)
[2016-12-06] MEDS: AL HYDROX/MG HYDROX/SIMETH 30 ML CUP PO SCH ×3 (02:57→16:48)
[2016-12-06] MEDS: MAGNESIUM SULFATE 20 GM/500 ML 500 ML IV SCH ×2 (03:48→13:24)
[2016-12-06] MEDS: PIPER-TAZO 3.375 GM IV (PMX) 100 ML IVPB SCH ×3 (06:03→22:00)
[2016-12-06 06:19] LABS: BASOPHILS % 0.3 % (0.0-2.0); HEMATOCRIT 34.1 % (37.0-47.0); HEMOGLOBIN 11.8 g/dl (12.0-16.0); LYMPHOCYTES % 10.3 % (15.0-51.0); MEAN CORPUSCULAR HEMOGLOBIN 30.3 pg (29.0-33.0); MEAN CORPUSCULAR HGB CONC 34.7 g/dl (32.0-37.0); MEAN CORPUSCULAR VOLUME 87.4 fl (82.0-101.0); MEAN PLATELET VOLUME 9.3 fl (7.4-10.4); MONOCYTE # 0.3 10^3/ul (0.3-0.9); MONOCYTES % 3.2 % (0.0-11.0); NEUTROPHIL # 8.6 10^3/ul (1.6-7.5); NEUTROPHILS % 86.2 % (39.0-77.0); PLATELET COUNT 205 10^3/UL (140-440); RED CELL DISTRIBUTION WIDTH 14.7 % (11.5-14.5)
[2016-12-06 06:21] LABS: CONDITION 1; LH ANALYZER COMMENTS 1
[2016-12-06 06:26] LABS: ALBUMIN 3.4 g/dl (3.3-4.9); POTASSIUM 4.3 mmol/L (3.5-5.1)
[2016-12-06 06:28] LABS: CREATININE 0.48 mg/dl (0.44-1.00)
[2016-12-06 06:29] LABS: ALBUMIN/GLOBULIN RATIO 1.3; BILIRUBIN,DIRECT 2.2 mg/dl (0.00-0.20); BILIRUBIN,INDIRECT 0.9 mg/dl (0-1.1); BILIRUBIN,TOTAL 3.1 mg/dl (0.2-1.3)
[2016-12-06] MEDS: FAMOTIDINE 20 MG INJ IV SCH ×2 (09:05→21:05)
[2016-12-06] MEDS: MAGNESIUM HYDROXIDE 30ML CUP PO SCH ×2 (09:12→21:05)
[2016-12-06] MEDS: DEXTROSE 5%-LR 1,000 ML IV SCH (09:12)
[2016-12-06] MEDS ORDERED: ONDANSETRON 4 MG INJ IV PRN (12:30)
--- NOTE | 2016-12-06 15:24 | PN ---
Date/Time of Note Date/Time of Note DATE: 12/06/16 TIME: 15:19 Assessment/Plan VTE Prophylaxis VTE Prophylaxis Intervention: ambulation Lines/Catheters IV Catheter Type (from Nrsg): Peripheral IV Assessment/Plan Assessment/Plan CBD dilatation: possible obstruction Vaginal bleeding : ? contractions and or ? abruption: doubt both will Obtain GI and GS consult MRCP is ordered Subjective 24 Hr Interval Summary Free Text/Dictation No more C/O vaginal bleeding No C/O abdominal pain feels Hungry Constitutional: improved, no complaints Eyes: no complaints ENT: no complaints Respiratory: no complaints Cardiovascular: no complaints Gastrointestinal: no complaints Genitourinary: no complaints Musculoskeletal: no complaints Skin: no complaints Neurologic: no complaints Endocrine: no complaints Lymphatic: no complaints Psychological: nl mood/affect, no complaints Immunologic: no complaints Exam/Review of Systems Vital Signs Vitals Vital Signs Date Time Temp Pulse Resp B/P Pulse Ox O2 Delivery O2 Flow Rate FiO2 12/05/16 04:18 97.8 83 18 114/64 Room Air Intake and Output 12/05/16 12/05/16 12/06/16 15:00 23:00 07:00 Intake Total 1875 ml 900 ml 1265 ml Output Total 400 ml 1650 ml Balance 1475 ml 900 ml -385 ml Exam Abdomen: soft BS + GOT and GPT are up WBC: UP with with left shift CBD is dilated Constitutional: alert, oriented, well developed Psych: nl mood/affect, no complaints Head: atraumatic, normocephalic Eyes: EOMI, PERRL, nl conjunctiva, nl lids, nl sclera ENMT: nl external ears & nose, nl lips & teeth, nl nasal mucosa & septum Neck: non-tender, supple Respiratory: clear to auscultation, normal air movement Cardiovascular: nl pulses, regular rate and rhythm Gastrointestinal: nl liver, spleen, non-tender, soft Musculoskeletal: nl extremities to inspection, nl gait and stance Extremities: normal pulses Neurological: GRAIN OPERATOR II-XII intact, nl mental status, nl speech, nl strength Skin: nl turgor, No rash or lesions Lymph: nl lymph nodes Results Result Diagram: 12/06/16 0544 12/06/16 0544 Results 24 hrs Laboratory Tests Test 12/05/16 23:50 12/06/16 05:44 12/06/16 12:57 Magnesium Level 3.6 H 4.3 H 4.4 H Alanine Aminotransferase (ALT/SGPT) 178 H Albumin 3.4 Albumin/Globulin Ratio 1.30 Alkaline Phosphatase 169 H Anion Gap 18 H Aspartate Amino Transf (AST/SGOT) 236 H Basophils # 0.0 Basophils % 0.3 Blood Morphology Comment Blood Urea Nitrogen 2 L Calcium Level 8.0 L Carbon Dioxide Level 19 L Chloride Level 104 Creatinine 0.48 Direct Bilirubin 2.20 #H Eosinophils # 0.0 Eosinophils % 0.0 Globulin 2.60 Glucose Level 96 Hematocrit 34.1 L Hemoglobin 11.8 L Indirect Bilirubin 0.9 Lymphocytes # 1.0 Lymphocytes % 10.3 L Mean Corpuscular Hemoglobin 30.3 Mean Corpuscular Hemoglobin Concent 34.7 Mean Corpuscular Volume 87.4 Mean Platelet Volume 9.3 Monocytes # 0.3 Monocytes % 3.2 Neutrophils # 8.6 H Neutrophils % 86.2 H Nucleated Red Blood Cells # 0.0 Nucleated Red Blood Cells % 0.0 Platelet Count 205 Potassium Level 4.3 Red Blood Count 3.90 L Red Cell Distribution Width 14.7 H Sodium Level 137 Total Bilirubin 3.1 H Total Protein 6.0 L White Blood Count 10.0 # Medications Medications Current Medications Lactated Ringer's (Lr) 1,000 ml @ 125 mls/hr Q8H IV Last administered on 16:17; Admin Dose 125 MLS/HR; Start 12/05/16 at 08:16 Al Hydrox/Mg Hydrox/Simethicone (Mag-Al Plus) 30 ml Q6H PRN PO GASTROINTESTINAL UPSET; Start 12/05/16 at 11:30 Famotidine (Pepcid Iv) 20 mg BID IV Last administered on 12/06/16 09:05; Admin Dose 20 MG; Start 12/05/16 at 11:30 Meperidine HCl 50 mg 50 mg Q4H PRN IV PAIN; Start 12/05/16 at 11:30 Piperacillin Sod/ Tazobactam Sod 100 ml @ 200 mls/hr Q8 IVPB Last administered on 12/06/16 13:25; Admin Dose 200 MLS/HR; Start 12/05/16 at 22:00 Dextrose/Lactated Ringer's 1,000 ml @ 75 mls/hr [id number] IV Last administered on 12/06/16 09:12; Admin Dose 75 MLS/HR; Start 12/05/16 at 17:55 Magnesium Sulfate (Magnesium Sulfate 20 Gm/500 ml) 500 ml @ 50 mls/hr Q10H IV Last administered on 12/06/16 13:24; Admin Dose 50 MLS/HR; Start 12/05/16 at 17 :55 Betamethasone Acet/Betameth SodPhos (Celestone Soluspan) 12 mg Q24H IM Last administered on 12/05/16 18:15; Admin Dose 12 MG; Start 12/05/16 at 18:00; Stop 12/06/16 at 18:01 Acetaminophen (Tylenol Tab) 650 mg Q4H PRN PO PAIN AND OR ELEVATED TEMP Last administered on 12/05/16 21:08; Admin Dose 650 MG; Start 12/05/16 at 18:00 Senna (Senokot) 2 tab BID PRN PO CONSTIPATION Last administered on 12/05/16 21 :07; Admin Dose 2 TAB; Start 12/05/16 at 21:00 Al Hydrox/Mg Hydrox/Simethicone (Mag-Al Plus) 30 ml Q12 PO Last administered on 12/06/16 02:57; Admin Dose 30 ML; Start 12/06/16 at 03:00 Magnesium Hydroxide (Milk Of Mag) 30 ml Q12H PO Last administered on 12/06/16 09:12; Admin Dose 30 ML; Start 12/05/16 at 21:00 Ondansetron HCl (Zofran Inj) 4 mg Q6H PRN IV NAUSEA AND/OR VOMITING Last administered on 12/06/16 12:49; Admin Dose 4 MG; Start 12/06/16 at 12:30 JEREMIAH AGUILAR MD Dec 06, 2016 15:24
--- NOTE | 2016-12-06 16:13 | CONS ---
[facility] INITIAL INPATIENT CONSULTATION NOTE DATE OF CONSULTATION: 12/06/2016 PLACE OF SERVICE: Second floor [facility]. ASSESSMENT AND PLAN: A very pleasant 31-year-old young lady with a few co- morbidities including BMI of 52.3 and previous , who is 34 weeks during her second and showing signs that could be consistent with choledocholithiasis. The available images indicate dilated common bile duct at 10 mm, but no obvious evidence of cholecystitis. Her clinical picture also argues against an obvious cholecystitis. The elevation in liver function and injury parameters could be seen in , although given the constellation of symptoms, I do think there is enough indication for us to recommend an MRCP and gastroenterology evaluation as well. If the patient shows to have choledocholithiasis that is symptomatic, then the next step would be an ERCP. Currently, I do not see any indication for acute surgical intervention, but I have strongly recommended that the patient undergoes an elective laparoscopic cholecystectomy approximately 4 to 6 weeks after delivery of her child. I explained all of this in detail with the patient and answered all her questions to the best of my ability. No other family member was present in the room while I discussed the picture with her. The patient appeared to understand and agreed with the plans. With above assessment, I recommended the followin. MRCP. 2. Gastroenterology consultation. 3. Keep in-house with treatment of symptoms. 4. Check labs. 5. I will follow the patient along with you. Thank you again for allowing us to participate in the care of this very pleasant lady and, I am certain, her wonderful family. If there are any questions, please feel free to call me at [phone]. TOTAL VISIT TIME: 45 minutes of which more than half was spent in [id number] discussion with the patient as well as coordination of care between multiple physicians and providers. UPDATED CLINICAL SUMMARY: A very pleasant 31-year-old lady, G2, P1, at 34 weeks , admitted with abdominal pain and rising liver function tests and liver injury parameters. Patient with 2 other visits and a brief admission 11/28/2016 to [facility] with abdominal pain as well. White blood cell count 10.0, platelets 205, CO2 19, creatinine 0.48. Total bilirubin 3.1, AST 236, ALT 178, alkaline phosphatase 169, total protein 6 and albumin 3.4 on 12/06/2016. Lipase 30 on admission. Hepatitis B surface antigen negative. Right upper quadrant ultrasound 05/04/2017 showed cholelithiasis with no obvious gallbladder wall thickening or pericholecystic fluid. Common bile duct measured at 10 mm. CO-MORBIDITIES: 1. Second , 34 weeks. 2. BMI 52.3. 3. History of abdominal pain and known cholelithiasis. 4. Status post . DATE OF ADMISSION: 12/05/2016 HISTORY OF PRESENT ILLNESS: Patient is a very pleasant 31-year-old lady, 34 weeks on her second , whom we were kindly asked to consult regarding evaluation and management of noted rise in alkaline phosphatase and AST and ALT in the setting of and known cholelithiasis. Patient reported having abdominal pain that was worsened over the last few days, more than her normal. This was associated with nausea and vomiting and in the right upper quadrant without significant radiation. Her symptoms that prompted admission on 11/28/2016 and a prompt discharge also were similar. She has never been told that she has gallbladder or biliary disease in the past. No other major complaints at this time, including no pain, given pain medications. No reported cardiopulmonary disease. No changes in bowel or bladder habits. No difficulty with appetite. She has been on a low fat diet since a few weeks ago, and the food does not seem to change her symptoms. ALLERGIES: NO KNOWN DRUG ALLERGIES. MEDICATIONS: 1. Tylenol. 2. Calcium carbonate. 3. Pepcid. 4. Iron. 5. vitamins. SOCIAL HISTORY: The patient lives with her family and does not report any smoking, drinking, or intravenous drug use. FAMILY HISTORY: No major reported medical, surgical, or oncologic problems in the family. REVIEW OF SYSTEMS: Other than the above-mentioned, there are no other pertinent positives or pertinent negatives in a complete 14-point review of systems. PHYSICAL EXAMINATION: GENERAL: The patient appears to be a very pleasant lady of descent, appearing stated age, lying in bed comfortably and in no acute distress. BMI is 52.3. VITAL SIGNS: Temperature 97.8. Blood pressure 114/64, pulse 83, respiratory rate 18. HEENT: Normocephalic and atraumatic. Extraocular muscles and hearing are grossly intact bilaterally and symmetrically. Sclerae are nonicteric. Oral cavity is clear; oral mucosa appeared to be pink and moist. Dentition: fair. NECK: Supple. There is no lymphadenopathy or JVD. There is no submental, submandibular or supraclavicular lymphadenopathy. CHEST: Rises symmetrically with each breath; patient is breathing comfortably. There are no audible wheezes, rales or rhonchi on the gross exam. HEART: Pulse is regular and palpable on the left wrist. Capillary refill was normal. Carotid pulses are palpable bilaterally and symmetrically in the neck. EXTREMITIES: Lower extremities contain no pitting edema around the ankles bilaterally and symmetrically. ABDOMEN: Protuberant and obviously . No significant tenderness to palpation and otherwise soft. There is no evidence of organomegaly or ascites. No peritoneal signs or guarding. SKIN: Appears to be pink and feels warm to touch. NEUROLOGIC: Awake, alert, and follows commands appropriately. LABORATORY VALUES: Reviewed above. IMAGING: Pertinent images reviewed above. Dictated By: THERESA HUDSON/CODY Conf#: [id number] DID#: [id number] MTDD
[2016-12-06] MEDS: BETAMET NA PHOS/AC(6 MG/ML) 5ML INJ IM SCH (18:41)
--- NOTE | 2016-12-06 19:03 | RADRPT ---
PROCEDURE: US OB biophysical profile. CLINICAL INDICATION: decreased movements, vaginal discharge TECHNIQUE: Multiple sonographic images of the pelvis were obtained. The images were reviewed on a PACS workstation. COMPARISON: 12/06/2016 FINDINGS: There is a single viable intrauterine gestation. Cardiac activity is present with 126 beats per min bridget. There is a vertex presentation. The placenta is anterior. There is no evidence of placental abruption. There is a normal amount of amniotic fluid with an NJ = 10.2 cm. Biophysical profile: movement 2/2 tone 2/2. breathing 2/2 NJ 2/2 Total 05/23 RPTAT: AA . IMPRESSION: Normal biophysical profile. . .Artur Baldwin MD, MD Date Time Electronically viewed and signed by .Artur Baldwin MD, on 12/06/2016 19:02 .S/
--- NOTE | 2016-12-06 19:05 | CONS ---
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 Pt states that symptoms started MondayNov 27 gradually. She states that symptoms began gradually and continued to worsened. Pt first presented that day and was treated in ED and discharged for symptoms after one day. Pt states that symptoms improved and gradually returned the following Monday. She states that symptoms again worsened and she returned to ED on Monday and later admitted. Pt denies previous episode of cholelithiasis or cholecystitis. Pt denies fever, chills, diarrhea, sick contacts, and travel outside [place]. Constitutional: improved, no complaints Eyes: no complaints ENT: no complaints Respiratory: no complaints Cardiovascular: no complaints Gastrointestinal: no complaints Genitourinary: no complaints Musculoskeletal: no complaints Skin: no complaints Neurologic: no complaints Endocrine: no complaints Lymphatic: no complaints Psychological: nl mood/affect, no complaints Immunologic: no complaints Past Surgical History Past Surgical Hx: no surgical history Social History Alcohol Use: none Smoking Status: Never smoker Exam/Review of Systems Vital Signs Vitals Vital Signs Date Time Temp Pulse Resp B/P Pulse Ox O2 Delivery O2 Flow Rate FiO2 12/05/16 04:18 97.8 83 18 114/64 Room Air Intake and Output 12/05/16 12/05/16 12/06/16 15:00 23:00 07:00 Intake Total 1875 ml 900 ml 1265 ml Output Total 400 ml 1650 ml Balance 1475 ml 900 ml -385 ml Exam Constitutional: alert, obese, oriented, well developed Psych: nl mood/affect, no complaints Head: atraumatic Eyes: EOMI, nl conjunctiva, nl lids, nl sclera ENMT: nl external ears & nose, nl lips & teeth, nl nasal mucosa & septum Respiratory: normal air movement Cardiovascular: regular rate and rhythm Gastrointestinal: non-tender, soft Musculoskeletal: nl extremities to inspection Neurological: BELT SEWER II-XII intact Results Result Diagram: 12/06/16 0544 12/06/16 0544 Results 24 hrs Laboratory Tests Test 12/05/16 23:50 12/06/16 05:44 12/06/16 12:57 Magnesium Level 3.6 H 4.3 H 4.4 H Alanine Aminotransferase (ALT/SGPT) 178 H Albumin 3.4 Albumin/Globulin Ratio 1.30 Alkaline Phosphatase 169 H Anion Gap 18 H Aspartate Amino Transf (AST/SGOT) 236 H Basophils # 0.0 Basophils % 0.3 Blood Morphology Comment Blood Urea Nitrogen 2 L Calcium Level 8.0 L Carbon Dioxide Level 19 L Chloride Level 104 Creatinine 0.48 Direct Bilirubin 2.20 #H Eosinophils # 0.0 Eosinophils % 0.0 Globulin 2.60 Glucose Level 96 Hematocrit 34.1 L Hemoglobin 11.8 L Indirect Bilirubin 0.9 Lymphocytes # 1.0 Lymphocytes % 10.3 L Mean Corpuscular Hemoglobin 30.3 Mean Corpuscular Hemoglobin Concent 34.7 Mean Corpuscular Volume 87.4 Mean Platelet Volume 9.3 Monocytes # 0.3 Monocytes % 3.2 Neutrophils # 8.6 H Neutrophils % 86.2 H Nucleated Red Blood Cells # 0.0 Nucleated Red Blood Cells % 0.0 Platelet Count 205 Potassium Level 4.3 Red Blood Count 3.90 L Red Cell Distribution Width 14.7 H Sodium Level 137 Total Bilirubin 3.1 H Total Protein 6.0 L White Blood Count 10.0 # Medications Medications Current Medications Al Hydrox/Mg Hydrox/Simethicone (Mag-Al Plus) 30 ml Q6H PRN PO GASTROINTESTINAL UPSET; Start 12/05/16 at 11:30 Famotidine (Pepcid Iv) 20 mg BID IV Last administered on 12/06/16 09:05; Admin Dose 20 MG; Start 12/05/16 at 11:30 Meperidine HCl 50 mg 50 mg Q4H PRN IV PAIN; Start 12/05/16 at 11:30 Piperacillin Sod/ Tazobactam Sod 100 ml @ 200 mls/hr Q8 IVPB Last administered on 12/06/16 13:25; Admin Dose 200 MLS/HR; Start 12/05/16 at 22:00 Dextrose/Lactated Ringer's 1,000 ml @ 75 mls/hr [id number] IV Last administered on 12/06/16 09:12; Admin Dose 75 MLS/HR; Start 12/05/16 at 17:55 Magnesium Sulfate (Magnesium Sulfate 20 Gm/500 ml) 500 ml @ 50 mls/hr Q10H IV Last administered on 12/06/16 13:24; Admin Dose 50 MLS/HR; Start 12/05/16 at 17 :55 Acetaminophen (Tylenol Tab) 650 mg Q4H PRN PO PAIN AND OR ELEVATED TEMP Last administered on 12/05/16 21:08; Admin Dose 650 MG; Start 12/05/16 at 18:00 Senna (Senokot) 2 tab BID PRN PO CONSTIPATION Last administered on 12/05/16 21 :07; Admin Dose 2 TAB; Start 12/05/16 at 21:00 Al Hydrox/Mg Hydrox/Simethicone (Mag-Al Plus) 30 ml Q12 PO Last administered on 12/06/16 16:48; Admin Dose 30 ML; Start 12/06/16 at 03:00 Magnesium Hydroxide (Milk Of Mag) 30 ml Q12H PO Last administered on 12/06/16 09:12; Admin Dose 30 ML; Start 12/05/16 at 21:00 Ondansetron HCl (Zofran Inj) 4 mg Q6H PRN IV NAUSEA AND/OR VOMITING Last administered on 12/06/16 12:49; Admin Dose 4 MG; Start 12/06/16 at 12:30 BIJAL DELVALLE MD Dec 06, 2016 19:05
--- NOTE | 2016-12-06 19:15 | RADRPT ---
PROCEDURE: MRCP. CLINICAL INDICATION: Right-sided abdominal pain. TECHNIQUE: MRCP was performed on a high field MRI scanner. Patient was examined without contrast. 3-D coronal rotating MIP images of the biliary tree are available for review. COMPARISON: None. FINDINGS: The gallbladder is distended. Small round signal voids layer dependently within the gallbladder lum en compatible with cholelithiasis. There is no gallbladder wall thickening or pericholecystic fluid . The common bile duct measures approximately 9 mm in greatest diameter. There is focal distortion of signal intensity within the central portion of the abdomen on a majority of the sequences compati ble with dielectric artifact. This somewhat limits evaluation of fine detail of the distal common b ile duct. Scattered signal inhomogeneity is seen within the common bile duct and may be artifactual in nature. Choledocholithiasis cannot be excluded. The liver, spleen, adrenal glands and left kidney are unremarkable. Minimal mild right pelviectasis is observed. There is no perinephric edema. A gravid uterus is partially visualized. IMPRESSION: Cholelithiasis with mild gallbladder distension. There is no associated gallbladder wall edema or p ericholecystic fluid. Mild common bile duct dilatation. Artifact affecting the central portion of the sequences limits varun luation of the common bile duct and surrounding structures. Scattered signal inhomogeneity is seen within the common bile duct and may be partially related to flow artifact. Choledocholithiasis dimple ot be excluded. RPTAT: HLST .Darcy Cox MD, MD Date Time Electronically viewed and signed by .Darcy Cox MD, MD on 12/06/2016 19:15 .T/
[2016-12-07] MEDS: MAGNESIUM SULFATE 20 GM/500 ML 500 ML IV SCH ×2 (00:17→11:09)
[2016-12-07] MEDS: DEXTROSE 5%-LR 1,000 ML IV SCH ×2 (00:21→15:20)
[2016-12-07] MEDS: PIPER-TAZO 3.375 GM IV (PMX) 100 ML IVPB SCH ×3 (05:56→22:19)
[2016-12-07] MEDS: AL HYDROX/MG HYDROX/SIMETH 30 ML CUP PO SCH ×2 (09:00→15:49)
[2016-12-07] MEDS: MAGNESIUM HYDROXIDE 30ML CUP PO SCH ×2 (09:00→21:00)
[2016-12-07] MEDS: FAMOTIDINE 20 MG INJ IV SCH ×2 (09:10→20:55)
[2016-12-07 09:35] LABS: ALBUMIN 3.3 g/dl (3.3-4.9)
[2016-12-07 09:38] LABS: BILIRUBIN,DIRECT 1.6 mg/dl (0.00-0.20); BILIRUBIN,INDIRECT 0.9 mg/dl (0-1.1); BILIRUBIN,TOTAL 2.5 mg/dl (0.2-1.3); TOTAL PROTEIN 6.2 g/dl (6.1-8.1)
[2016-12-07] MEDS: NIFEdipine 10 MG CAP PO SCH ×2 (15:18→20:56)
--- NOTE | 2016-12-07 15:37 | CONS ---
Date/Time of Note Date/Time of Note DATE: 12/07/16 TIME: 15:28 Assessment/Plan Assessment/Plan Additional Assessment/Plan Abdominal pain/Nausea/Vomiting * Monitor labs * R/o biliary obstruction * MRCP 12-06-16: * 1. Cholelithiasis with mild gallbladder distension. There is no associated gallbladder wall edema or pericholecystic fluid. 2. Mild common bile duct dilatation. Artifact affecting the central portion of the sequences limits evaluation of the common bile duct and surrounding structures. Scattered signal inhomogeneity is seen within the common bile duct and may be partially related to flow artifact. Choledocholithiasis cannot be excluded. * Repeat MRCP * Continue clears * Pain and nausea control * ERCP if clinically indicated at tertiary center * Case management consult for possible transfer to tertiary center for ERCP * Surgery following Intrauterine * INFORMATION TECHNOLOGY ADMINISTRATOR following Further recommendations depend on clinical course Patient seen in collaboration with Dr. Tan Consultation Date/Type/Reason Admit Date/Time Dec 05, 2016 at 08:27 Initial Consult Date Type of Consultation: GI Reason for Consultation CBD dilation 24 HR Interval Summary Free Text/Dictation Patient states she has been pain-free since Monday Denies nausea and vomiting Tolerating clear diet Labs trending downward slowly Exam/Review of Systems Vital Signs Vitals Vital Signs Date Time Temp Pulse Resp B/P Pulse Ox O2 Delivery O2 Flow Rate FiO2 12/05/16 04:18 97.8 83 18 114/64 Room Air Intake and Output 12/06/16 12/06/16 12/07/16 15:00 23:00 07:00 Intake Total 995 ml 1890 ml 1025 ml Output Total 1000 ml 2300 ml 1400 ml Balance -5 ml -410 ml -375 ml Exam Constitutional: alert, obese, oriented, well developed Psych: nl mood/affect, no complaints Head: atraumatic Eyes: EOMI, nl conjunctiva, nl lids, nl sclera ENMT: nl external ears & nose, nl lips & teeth, nl nasal mucosa & septum Respiratory: normal air movement Cardiovascular: regular rate and rhythm Gastrointestinal: non-tender, soft Musculoskeletal: nl extremities to inspection Neurological: DRAWER LINER II-XII intact Results Result Diagram: 12/06/16 0544 12/06/16 0544 Results 24 hrs Laboratory Tests Test 12/06/16 18:50 12/06/16 23:43 12/07/16 05:34 Magnesium Level 3.8 H 4.4 H 4.5 H Alanine Aminotransferase (ALT/SGPT) 256 H Albumin 3.3 Alkaline Phosphatase 162 H Aspartate Amino Transf (AST/SGOT) 351 H Direct Bilirubin 1.60 #H Indirect Bilirubin 0.9 Total Bilirubin 2.5 H Total Protein 6.2 Medications Medications Current Medications Al Hydrox/Mg Hydrox/Simethicone (Mag-Al Plus) 30 ml Q6H PRN PO GASTROINTESTINAL UPSET; Start 12/05/16 at 11:30 Famotidine (Pepcid Iv) 20 mg BID IV Last administered on 12/07/16 09:10; Admin Dose 20 MG; Start 12/05/16 at 11:30 Meperidine HCl 50 mg 50 mg Q4H PRN IV PAIN; Start 12/05/16 at 11:30 Piperacillin Sod/ Tazobactam Sod 100 ml @ 200 mls/hr Q8 IVPB Last administered on 12/07/16 14:08; Admin Dose 200 MLS/HR; Start 12/05/16 at 22:00 Dextrose/Lactated Ringer's (D5-Lr) 1,000 ml @ 75 mls/hr [id number] IV Last administered on 12/07/16 15:20; Admin Dose 75 MLS/HR; Start 12/05/16 at 17:55 Acetaminophen (Tylenol Tab) 650 mg Q4H PRN PO PAIN AND OR ELEVATED TEMP Last administered on 12/05/16 21:08; Admin Dose 650 MG; Start 12/05/16 at 18:00 Senna (Senokot) 2 tab BID PRN PO CONSTIPATION Last administered on 12/05/16 21 :07; Admin Dose 2 TAB; Start 12/05/16 at 21:00 Al Hydrox/Mg Hydrox/Simethicone (Mag-Al Plus) 30 ml Q12 PO Last administered on 12/06/16 16:48; Admin Dose 30 ML; Start 12/06/16 at 03:00 Magnesium Hydroxide (Milk Of Mag) 30 ml Q12H PO Last administered on 12/06/16 21:05; Admin Dose 30 ML; Start 12/05/16 at 21:00 Ondansetron HCl (Zofran Inj) 4 mg Q6H PRN IV NAUSEA AND/OR VOMITING Last administered on 12/06/16 12:49; Admin Dose 4 MG; Start 12/06/16 at 12:30 Nifedipine (Procardia) 20 mg Q6H PO Last administered on 12/07/16 15:18; Admin Dose 20 MG; Start 12/07/16 at 15:00 TANK ROWE Dec 07, 2016 15:37
--- NOTE | 2016-12-07 17:51 | PN ---
Date/Time of Note Date/Time of Note DATE: 12/07/16 TIME: 17:47 Assessment/Plan Lines/Catheters IV Catheter Type (from [facility], [place]): Peripheral IV Assessment/Plan Assessment/Plan [facility] Progress Note Date of Service: 12/07/16 Today's Impression & Plan: Overall doing well without major issues. MRCP with poor quality, but clinically improved. Awaiting Dr. Tan's input re possible ERCP. If no plans for ERCP, I recommend resumption of low fat diet with careful inpatient observation and lab checks in am. No indication for acute surgical intervention. Explained to patient, her [id number] and answered all questions. With above assessment, I've recommended the following for today: 1. Dr. Tan's input re ERCP 2. If no plans for ERCP, start low fat diet 3. Keep inhouse and check labs in am Thank you again for your great care of this very pleasant patient and wonderful family. If there are any questions, please feel free to call me at [phone]. TOTAL VISIT TIME: 20 minutes of which more than half was spent in [id number] discussion with the patient, possibly including family, as well as coordination of care between multiple physicians and providers. Disclaimer: Inadvertent spelling or grammatical errors are likely due to EHR/ dictation software use and do not reflect on the overall quality of patient care. Updated Clinical Summary: UPDATED CLINICAL SUMMARY: A very pleasant 31-year-old lady, G2, P1, at 34 weeks , admitted with abdominal pain and rising liver function tests and liver injury parameters. Patient with 2 other visits and a brief admission 11/28/2016 to [facility] with abdominal pain as well. White blood cell count 10.0, platelets 205, CO2 19, creatinine 0.48. Total bilirubin 3.1, AST 236, ALT 178, alkaline phosphatase 169, total protein 6 and albumin 3.4 on 12/06/2016. Lipase 30 on admission. Hepatitis B surface antigen negative. Right upper quadrant ultrasound 05/04/2017 showed cholelithiasis with no obvious gallbladder wall thickening or pericholecystic fluid. Common bile duct measured at 10 mm. CO-MORBIDITIES: 1. Second , 34 weeks. 2. BMI 52.3. 3. History of abdominal pain and known cholelithiasis. 4. Status post . Subjective: No major events or complaints; no abd pain and under control with medications; no n/v/d; no sob or cp; + flatus; + BM and normal; + activity; hungry Objective: Vitals: See below Exam: GENERAL: On exam, the patient was sitting in a chair and appeared to be comfortable and in no acute distress. ABDOMEN: Soft, nontender and nondistended. There are no peritoneal signs or guarding. SKIN: Skin appears to be pink and feels warm to touch. NEUROLOGIC: Patient is awake, alert, and follows commands appropriately. Exam/Review of Systems Vital Signs Vitals Vital Signs Date Time Temp Pulse Resp B/P Pulse Ox O2 Delivery O2 Flow Rate FiO2 12/05/16 04:18 97.8 83 18 114/64 Room Air Intake and Output 12/06/16 12/06/16 12/07/16 15:00 23:00 07:00 Intake Total 995 ml 1890 ml 1025 ml Output Total 1000 ml 2300 ml 1400 ml Balance -5 ml -410 ml -375 ml Results Result Diagram: 12/06/16 0544 12/06/16 0544 THERESA WOLFF M.D. Dec 07, 2016 17:51
--- NOTE | 2016-12-07 19:59 | PN ---
Date/Time of Note Date/Time of Note DATE: 12/07/16 TIME: 19:57 Assessment/Plan VTE Prophylaxis VTE Prophylaxis Intervention: ambulation Lines/Catheters IV Catheter Type (from Nrsg): Peripheral IV Assessment/Plan Assessment/Plan Gallstones vaginal bleeding resolved will follow with GI service Subjective 24 Hr Interval Summary Free Text/Dictation had BM No vaginal bleeding Exam/Review of Systems Vital Signs Vitals Vital Signs Date Time Temp Pulse Resp B/P Pulse Ox O2 Delivery O2 Flow Rate FiO2 12/05/16 04:18 97.8 83 18 114/64 Room Air Intake and Output 12/06/16 12/06/16 12/07/16 15:00 23:00 07:00 Intake Total 995 ml 1890 ml 1025 ml Output Total 1000 ml 2300 ml 1400 ml Balance -5 ml -410 ml -375 ml Exam abdomen: soft Constitutional: alert, oriented, well developed Psych: nl mood/affect, no complaints Head: atraumatic, normocephalic Eyes: EOMI, PERRL, nl conjunctiva, nl lids, nl sclera ENMT: nl external ears & nose, nl lips & teeth, nl nasal mucosa & septum Neck: non-tender, supple Respiratory: clear to auscultation, normal air movement Cardiovascular: nl pulses, regular rate and rhythm Gastrointestinal: nl liver, spleen, non-tender, soft Musculoskeletal: nl extremities to inspection, nl gait and stance Extremities: normal pulses Neurological: MINES SAFETY ENGINEER II-XII intact, nl mental status, nl speech, nl strength Skin: nl turgor, No rash or lesions Lymph: nl lymph nodes Results Result Diagram: 12/06/1644 12/06/16 0544 Results 24 hrs Laboratory Tests Test 12/06/16 23:43 12/07/16 05:34 Magnesium Level 4.4 H 4.5 H Alanine Aminotransferase (ALT/SGPT) 256 H Albumin 3.3 Alkaline Phosphatase 162 H Aspartate Amino Transf (AST/SGOT) 351 H Direct Bilirubin 1.60 #H Indirect Bilirubin 0.9 Total Bilirubin 2.5 H Total Protein 6.2 Medications Medications Current Medications Al Hydrox/Mg Hydrox/Simethicone (Mag-Al Plus) 30 ml Q6H PRN PO GASTROINTESTINAL UPSET; Start 12/05/16 at 11:30 Famotidine (Pepcid Iv) 20 mg BID IV Last administered on 12/07/16 09:10; Admin Dose 20 MG; Start 12/05/16 at 11:30 Meperidine HCl 50 mg 50 mg Q4H PRN IV PAIN; Start 12/05/16 at 11:30 Piperacillin Sod/ Tazobactam Sod 100 ml @ 200 mls/hr Q8 IVPB Last administered on 12/07/16 14:08; Admin Dose 200 MLS/HR; Start 12/05/16 at 22:00 Dextrose/Lactated Ringer's (D5-Lr) 1,000 ml @ 75 mls/hr [id number] IV Last administered on 12/07/16 15:20; Admin Dose 75 MLS/HR; Start 12/05/16 at 17:55 Acetaminophen (Tylenol Tab) 650 mg Q4H PRN PO PAIN AND OR ELEVATED TEMP Last administered on 12/05/16 21:08; Admin Dose 650 MG; Start 12/05/16 at 18:00 Senna (Senokot) 2 tab BID PRN PO CONSTIPATION Last administered on 12/05/16 21 :07; Admin Dose 2 TAB; Start 12/05/16 at 21:00 Al Hydrox/Mg Hydrox/Simethicone (Mag-Al Plus) 30 ml Q12 PO Last administered on 12/07/16 15:49; Admin Dose 30 ML; Start 12/06/16 at 03:00 Magnesium Hydroxide (Milk Of Mag) 30 ml Q12H PO Last administered on 12/06/16 21:05; Admin Dose 30 ML; Start 12/05/16 at 21:00 Ondansetron HCl (Zofran Inj) 4 mg Q6H PRN IV NAUSEA AND/OR VOMITING Last administered on 12/06/16 12:49; Admin Dose 4 MG; Start 12/06/16 at 12:30 Nifedipine (Procardia) 20 mg Q6H PO Last administered on 12/07/16 15:18; Admin Dose 20 MG; Start 12/07/16 at 15:00 JEREMIAH AGUILAR MD Dec 07, 2016 19:59
[2016-12-08] MEDS: NIFEdipine 10 MG CAP PO SCH ×4 (02:50→21:20)
[2016-12-08] MEDS: PIPER-TAZO 3.375 GM IV (PMX) 100 ML IVPB SCH ×2 (05:58→14:14)
[2016-12-08] MEDS: DEXTROSE 5%-LR 1,000 ML IV SCH ×2 (05:59→12:54)
[2016-12-08] MEDS: MAGNESIUM HYDROXIDE 30ML CUP PO SCH ×2 (09:00→21:00)
[2016-12-08] MEDS: AL HYDROX/MG HYDROX/SIMETH 30 ML CUP PO SCH ×2 (09:02→21:18)
[2016-12-08] MEDS: FAMOTIDINE 20 MG INJ IV SCH ×2 (09:02→21:20)
--- NOTE | 2016-12-08 12:08 | RADRPT ---
PROCEDURE: MRCP. CLINICAL INDICATION: Right upper quadrant pain. . Abdominal pain. CBD dilatation. TECHNIQUE: MRCP was performed on the a high-resolution, high Fernanda field strength scanner. Janet treivno was examined without contrast. 3-D coronal rotating MIP images of the biliary tree are available for review. COMPARISON: MRCP study dated 12/06/2016 FINDINGS: Gallbladder is distended with gallstones. Again, there is failure to evaluate the distal common jt e duct. There is too much artifact on the scanner to adequately visualize the distal CBD. Mild pro ximal upper common hepatic duct dilatation is noted during the examination, stable since the prior s tudy. Enlarged gravid uterus is present, likely contributing to the artifact on this study. IMPRESSION: 1. Once again, there is failure to adequately visualize the distal common bile duct. 2. Distal CBD dilatation and/or choledocholithiasis cannot be excluded. 3. Distended gallbladder with gallstones, stable over time. RPTAT: HMJB .Louis Posadas MD, MD Date Time Electronically viewed and signed by .Louis Posadas MD, on 12/08/2016 12:08 .B/
[2016-12-08 12:25] LABS: ALBUMIN 3.5 g/dl (3.3-4.9)
[2016-12-08 12:26] LABS: POTASSIUM 4.3 mmol/L (3.5-5.1)
[2016-12-08 12:28] LABS: BILIRUBIN,DIRECT 1.2 mg/dl (0.00-0.20); BILIRUBIN,INDIRECT 0.8 mg/dl (0-1.1); CREATININE 0.54 mg/dl (0.44-1.00)
[2016-12-08 12:29] LABS: ALBUMIN/GLOBULIN RATIO 1.2; TOTAL PROTEIN 6.4 g/dl (6.1-8.1)
--- NOTE | 2016-12-08 15:52 | PN ---
Date/Time of Note Date/Time of Note DATE: 12/08/16 TIME: 15:50 Assessment/Plan Lines/Catheters IV Catheter Type (from Nrs): Peripheral IV Assessment/Plan Assessment/Plan [facility] Progress Note Date of Service: 12/08/16 Today's Impression & Plan: Overall doing well without major issues. Labs acceptable despite clear liquid intake. No indication for acute surgical intervention. Explained to patient. With above assessment, I've recommended the following for today: 1. Low fat diet 2. Keep inhouse and check labs in am 3. Possible d/c home if continues to do well and labs acceptable tomorrow Thank you again for your great care of this very pleasant patient and wonderful family. If there are any questions, please feel free to call me at [phone]. TOTAL VISIT TIME: 20 minutes of which more than half was spent in [id number] discussion with the patient, possibly including family, as well as coordination of care between multiple physicians and providers. Disclaimer: Inadvertent spelling or grammatical errors are likely due to EHR/ dictation software use and do not reflect on the overall quality of patient care. Updated Clinical Summary: UPDATED CLINICAL SUMMARY: A very pleasant 31-year-old lady, G2, P1, at 34 weeks , admitted with abdominal pain and rising liver function tests and liver injury parameters. Patient with 2 other visits and a brief admission 11/28/2016 to [facility] with abdominal pain as well. White blood cell count 10.0, platelets 205, CO2 19, creatinine 0.48. Total bilirubin 3.1, AST 236, ALT 178, alkaline phosphatase 169, total protein 6 and albumin 3.4 on 12/06/2016. Lipase 30 on admission. Hepatitis B surface antigen negative. Right upper quadrant ultrasound 05/04/2017 showed cholelithiasis with no obvious gallbladder wall thickening or pericholecystic fluid. Common bile duct measured at 10 mm. CO-MORBIDITIES: 1. Second , 34 weeks. 2. BMI 52.3. 3. History of abdominal pain and known cholelithiasis. 4. Status post . Subjective: No major events or complaints; no abd pain and under control with medications; no n/v/d; no sob or cp; + flatus; + BM and normal; + activity; tolerated clear liquid diet Objective: Vitals: See below Exam: GENERAL: On exam, the patient was sitting in a chair and appeared to be comfortable and in no acute distress. ABDOMEN: Soft, nontender and nondistended. There are no peritoneal signs or guarding. SKIN: Skin appears to be pink and feels warm to touch. NEUROLOGIC: Patient is awake, alert, and follows commands appropriately. Exam/Review of Systems Vital Signs Vitals Vital Signs Date Time Temp Pulse Resp B/P Pulse Ox O2 Delivery O2 Flow Rate FiO2 12/05/16 04:18 97.8 83 18 114/64 Room Air Intake and Output 12/07/16 12/07/16 12/08/16 15:00 23:00 07:00 Intake Total 750 ml 1335 ml 1150 ml Output Total 150 ml 600 ml Balance 600 ml 735 ml 1150 ml Results Result Diagram: 12/06/16 0544 12/08/16 1213 THERESA WOLFF M.D. Dec 08, 2016 15:52
--- NOTE | 2016-12-08 16:46 | CONS ---
Date/Time of Note Date/Time of Note DATE: 12/08/16 TIME: 16:42 Assessment/Plan Assessment/Plan Additional Assessment/Plan Abdominal pain/Nausea/Vomiting * Monitor labs * MRCP 12-06-16: * 1. Cholelithiasis with mild gallbladder distension. There is no associated gallbladder wall edema or pericholecystic fluid. 2. Mild common bile duct dilatation. Artifact affecting the central portion of the sequences limits evaluation of the common bile duct and surrounding structures. Scattered signal inhomogeneity is seen within the common bile duct and may be partially related to flow artifact. Choledocholithiasis cannot be excluded. * Advance diet as tolerated * Pain and nausea control * ERCP not recommend * Surgery following, recommend cholecystectomy 1 month Intrauterine * TOLL TEST WORKER following Consultation Date/Type/Reason Admit Date/Time Dec 05, 2016 at 08:27 Type of Consultation: GI 24 HR Interval Summary Free Text/Dictation Karel diet Denies abdominal pain Will advance diet ERCP not planned Pt advised to have cholecystectomy 1 month Exam/Review of Systems Vital Signs Vitals Vital Signs Date Time Temp Pulse Resp B/P Pulse Ox O2 Delivery O2 Flow Rate FiO2 12/05/16 04:18 97.8 83 18 114/64 Room Air Intake and Output 12/07/16 12/07/16 12/08/16 15:00 23:00 07:00 Intake Total 750 ml 1335 ml 1150 ml Output Total 150 ml 600 ml Balance 600 ml 735 ml 1150 ml Exam onstitutional: alert, obese, oriented, well developed Psych: nl mood/affect, no complaints Head: atraumatic Eyes: EOMI, nl conjunctiva, nl lids, nl sclera ENMT: nl external ears & nose, nl lips & teeth, nl nasal mucosa & septum Respiratory: normal air movement Cardiovascular: regular rate and rhythm Gastrointestinal: non-tender, soft Musculoskeletal: nl extremities to inspection Neurological: SENIOR LOAN OFFICER II-XII intact Results Result Diagram: 12/06/16 0544 12/08/16 1213 Results 24 hrs Laboratory Tests Test 12/08/16 12:13 Alanine Aminotransferase (ALT/SGPT) 296 H Albumin 3.5 Albumin/Globulin Ratio 1.20 Alkaline Phosphatase 152 H Anion Gap 14 Aspartate Amino Transf (AST/SGOT) 313 H Blood Urea Nitrogen 6 L Calcium Level 9.0 Carbon Dioxide Level 27 Chloride Level 105 Creatinine 0.54 Direct Bilirubin 1.20 H Globulin 2.90 Glucose Level 91 Indirect Bilirubin 0.8 Potassium Level 4.3 Sodium Level 142 Total Bilirubin 2.0 H Total Protein 6.4 Medications Medications Current Medications Al Hydrox/Mg Hydrox/Simethicone (Mag-Al Plus) 30 ml Q6H PRN PO GASTROINTESTINAL UPSET; Start 12/05/16 at 11:30 Famotidine (Pepcid Iv) 20 mg BID IV Last administered on 12/08/16 09:02; Admin Dose 20 MG; Start 12/05/16 at 11:30 Meperidine HCl 50 mg 50 mg Q4H PRN IV PAIN; Start 12/05/16 at 11:30 Dextrose/Lactated Ringer's (D5-Lr) 1,000 ml @ 75 mls/hr [id number] IV Last administered on 12/08/16 12:54; Admin Dose 75 MLS/HR; Start 12/05/16 at 17:55 Acetaminophen (Tylenol Tab) 650 mg Q4H PRN PO PAIN AND OR ELEVATED TEMP Last administered on 12/05/16 21:08; Admin Dose 650 MG; Start 12/05/16 at 18:00 Senna (Senokot) 2 tab BID PRN PO CONSTIPATION Last administered on 12/05/16 21 :07; Admin Dose 2 TAB; Start 12/05/16 at 21:00 Al Hydrox/Mg Hydrox/Simethicone (Mag-Al Plus) 30 ml Q12 PO Last administered on 12/08/16 09:02; Admin Dose 30 ML; Start 12/06/16 at 03:00 Magnesium Hydroxide (Milk Of Mag) 30 ml Q12H PO Last administered on 12/06/16 21:05; Admin Dose 30 ML; Start 12/05/16 at 21:00 Ondansetron HCl (Zofran Inj) 4 mg Q6H PRN IV NAUSEA AND/OR VOMITING Last administered on 12/06/16 12:49; Admin Dose 4 MG; Start 12/06/16 at 12:30 Nifedipine 20 mg 20 mg Q6H PO Last administered on 12/08/16 14:54; Admin Dose 20 MG; Start 12/07/16 at 15:00 Piperacillin Sod/ Tazobactam Sod (Zosyn 3.375gm/ 100 ml (Pmx)) 100 ml @ 200 mls /hr Q8 IVPB Last administered on 12/08/16t 14:14; Admin Dose 200 MLS/HR; Start 12/07/16 at 22:00 TANK ROWE Dec 08, 2016 16:46
--- NOTE | 2016-12-08 17:53 | PN ---
Date/Time of Note Date/Time of Note DATE: 12/08/16 TIME: 17:49 OB Subjective Subjective Subjective no c/o abdominal pain had BM OB Objective Objective Objective VSS P/E: NL No further procedure was recommended by consultants OB Assessment/Plan Other Assessment: cholelithiasis 35 weeks gestation Other plan: diet advanced will D/C home next day JEREMIAH AGUILAR MD Dec 08, 2016 17:53
[2016-12-09] MEDS: DEXTROSE 5%-LR 1,000 ML IV SCH (01:09)
[2016-12-09] MEDS: NIFEdipine 10 MG CAP PO SCH ×2 (05:54→11:36)
[2016-12-09] MEDS: MAGNESIUM HYDROXIDE 30ML CUP PO SCH (09:00)
[2016-12-09] MEDS: FAMOTIDINE 20 MG INJ IV SCH (09:06)
[2016-12-09] MEDS: AL HYDROX/MG HYDROX/SIMETH 30 ML CUP PO SCH (09:06)
--- NOTE | 2016-12-09 12:24 | CONS ---
Date/Time of Note Date/Time of Note DATE: 12/09/16 TIME: 12:22 Assessment/Plan Assessment/Plan Additional Assessment/Plan Abdominal pain/Nausea/Vomiting * Monitor labs * MRCP 12-06-16: * 1. Cholelithiasis with mild gallbladder distension. There is no associated gallbladder wall edema or pericholecystic fluid. 2. Mild common bile duct dilatation. Artifact affecting the central portion of the sequences limits evaluation of the common bile duct and surrounding structures. Scattered signal inhomogeneity is seen within the common bile duct and may be partially related to flow artifact. Choledocholithiasis cannot be excluded. * Advance diet as tolerated * Pain and nausea control * ERCP not recommend * Surgery following, recommend cholecystectomy 1 month Intrauterine * REGISTERED VASCULAR TECHNOLOGIST (RVT) following Further recommendations depend on clinical course Patient stable from GI standpoint Patient seen in collaboration with Dr. Tan Consultation Date/Type/Reason Admit Date/Time Dec 05, 2016 at 08:27 Type of Consultation: GI 24 HR Interval Summary Free Text/Dictation Tolerating diet Reports diarrhea yesterday, C. difficile collected Abdominal pain improving Exam/Review of Systems Vital Signs Vitals Intake and Output 12/08/16 12/08/16 12/09/16 15:00 23:00 07:00 Intake Total 510 ml 675 ml 600 ml Output Total 850 ml 575 ml 200 ml Balance -340 ml 100 ml 400 ml Exam Constitutional: alert, obese, oriented, well developed Psych: nl mood/affect, no complaints Head: atraumatic Eyes: EOMI, nl conjunctiva, nl lids, nl sclera ENMT: nl external ears & nose, nl lips & teeth, nl nasal mucosa & septum Respiratory: normal air movement Cardiovascular: regular rate and rhythm Gastrointestinal: non-tender, soft Musculoskeletal: nl extremities to inspection Neurological: HOT MOLDER II-XII intact Results Result Diagram: 12/06/16 0544 12/08/16 1213 Medications Medications Current Medications Al Hydrox/Mg Hydrox/Simethicone (Mag-Al Plus) 30 ml Q6H PRN PO GASTROINTESTINAL UPSET; Start 12/05/16 at 11:30 Famotidine (Pepcid Iv) 20 mg BID IV Last administered on 12/09/16t 09:06; Admin Dose 20 MG; Start 12/05/16 at 11:30 Meperidine HCl 50 mg 50 mg Q4H PRN IV PAIN; Start 12/05/16 at 11:30 Dextrose/Lactated Ringer's (D5-Lr) 1,000 ml @ 75 mls/hr [id number] IV Last administered on 12/09/16 01:09; Admin Dose 75 MLS/HR; Start 12/05/16 at 17:55 Acetaminophen (Tylenol Tab) 650 mg Q4H PRN PO PAIN AND OR ELEVATED TEMP Last administered on 12/05/16 21:08; Admin Dose 650 MG; Start 12/05/16 at 18:00 Senna (Senokot) 2 tab BID PRN PO CONSTIPATION Last administered on 12/05/16 21 :07; Admin Dose 2 TAB; Start 12/05/16 at 21:00 Al Hydrox/Mg Hydrox/Simethicone (Mag-Al Plus) 30 ml Q12 PO Last administered on 12/09/16 09:06; Admin Dose 30 ML; Start 12/06/16 at 03:00 Magnesium Hydroxide (Milk Of Mag) 30 ml Q12H PO Last administered on 12/06/16 21:05; Admin Dose 30 ML; Start 12/05/16 at 21:00 Ondansetron HCl (Zofran Inj) 4 mg Q6H PRN IV NAUSEA AND/OR VOMITING Last administered on 12/06/16 12:49; Admin Dose 4 MG; Start 12/06/16 at 12:30 Nifedipine (Procardia) 20 mg Q6H PO Last administered on 12/09/16 11:36; Admin Dose 20 MG; Start 12/07/16 at 15:00 TANK ROWE Dec 09, 2016 12:24
--- NOTE | 2016-12-09 16:20 | DS ---
Date/Time of Note Date/Time of Note DATE: 12/09/16 TIME: 16:18 Obstetrical Discharge Record Final Diagnosis Final Diagnosis: not delivered Other Final Diagnosis labor gallstones Complications Tocolytics: Magnesium Sulfate, Other (Nifedipine ) Condition on Discharge Physical Assessment Last Vitals: see nurses notes Voiding: Yes Bowel Movement: Yes Breast: Soft, non-tender, Filling Fundus: Other (gravid) Abdomen and Incision: soft BS + Episiotomy: NA Calf Tenderness: No Patient Condition: Good JEREMAIH AGUILAR MD Dec 09, 2016 16:20
--- NOTE | 2016-12-09 16:23 | DS ---
Date/Time of Note Date/Time of Note DATE: 12/09/16 TIME: 16:20 Discharge Summary Admission/Discharge Info Admit Date/Time Dec 05, 2016 at 08:27 Discharge Date/Time 12/09/2016 Final Diagnosis uterine contractions Cholelithiasis Patient Condition: Good Procedures tocolysis of contractions Hx of Present Illness 31 y/o female admitted with possible common bile dut obstruction and noticed to have vaginal bleeding which responded to tocolytics Hospital Course 31 YO obese F presented to ED with complaints of worsening abdominal pain, nausea, and non bloody vomiting. Pt states that symptoms started MondayNov 27 gradually. She states that symptoms began gradually and continued to worsened. Pt first presented that day and was treated in ED and discharged for symptoms after one day. Pt states that symptoms improved and gradually returned the following Monday. She states that symptoms again worsened and she returned to ED on Monday and later admitted. Pt denies previous episode of cholelithiasis or cholecystitis. Pt denies fever, chills, diarrhea, sick contacts, and travel outside [place]. Home Meds Reported Medications Acetaminophen (Tylenol) 500 Mg Tab, 500 MG PO Q4H WHILE AWAKE, TAB 12/05/16 Famotidine* (Pepcid* AC) 20 Mg Tablet, 20 MG PO BID, #60 TAB 12/05/16 Calcium Carbonate (CALCIUM CARBONATE) 200 Mg Tab.chew, 200 MG PO, TAB.CHEW 12/05/16 Ferrous Sulfate (Iron) 1 Tab Tablet 03/30/11 Vits W-Ca,Fe,Fa(<1MG) ( Vitamins) 1 Tab Tablet 03/30/11 Discontinued Reported Medications Magaldrate/Simethicone* (Mag-Al Plus Suspension*) 30 Ml Oral.susp, 30 ML PO Q6H Y for GASTROINTESTINAL UPSET, ML 11/28/16 Follow-up Plan 3-4 days in clinic JEREMIAH AGUILAR MD Dec 09, 2016 16:23
--- NOTE | 2016-12-09 16:27 | PD.PPDC ---
STEEL TIER Discharge Instruction Provider Information Physician Information 31 y/o female had tocolysis of contractions and observation for cholelithiasis Diagnosis Final Diagnosis: U/Cs and gallstones Condition Patient Condition: Good Diet Diet: Special Diet Special Diet: low fat Activity/Restrictions Activity: Bedrest May Shower Restrictions: No Exercising No Lifting Nothing in the Vagina Follow-up Follow-up with Physician: 4, Day/Days (in clinic) Return to clinic for LEATHER ROLLER Instructions: Worsening abdominal pain Excessive Vaginal Bleeding JEREMIAH AGUILAR MD Dec 09, 2016 16:27
[2016-12-09] MEDS ORDERED: NIFEdipine PO (16:29)
[2016-12-09] MEDS ORDERED: FAMOTIDINE 20 MG TAB PO SCH (21:00)
== END 2016-12-09 17:20 | disposition home or self-care (01) | DRG 778 ==
LOC: L-D 04:12 → OBT 04:12 → OBG 08:27
PROVIDERS: ADMIT Obstetrics & Gynecology; ATTEND Obstetrics & Gynecology
DX: O60.03 Preterm labor without delivery, third trimester (principal); Z68.43 Body mass index [BMI] 50.0-59.9, adult; O26.853 Spotting complicating pregnancy, third trimester; O99.613 Diseases of the digestive system complicating pregnancy, third trimester; K80.80 Other cholelithiasis without obstruction; Z3A.34 34 weeks gestation of pregnancy; O99.213 Obesity complicating pregnancy, third trimester; E66.01 Morbid (severe) obesity due to excess calories
CPT/HCPCS: 36415; 74181; 76705; 76815; 76816; 80053; 80076; 83690; 83735; 85025; 86850; 86900; 86901; 87340; 96360; 96361; 96366; 96376; G0463; J0131; J0702; J1885; J2405; J2543; J3475; J7120; J7121

== ENCOUNTER 2016-12-11 00:30 | Emergency (ER) | payer OTHER ==
[~2016-12-11] VITALS: Ht 160 cm; Wt 131.5 kg
[~2016-12-11 00:30] MED LIST changes: +ACET500T98 PO; +CALC200T26 PO; +FAMO-95 PO; +NIFEdipine PO; -UDMYL PO
[2016-12-11 00:33] VITALS: Ht 160 cm; Wt 131.5 kg
[2016-12-11] MEDS ORDERED: UDMYL PO (02:06)
== END 2016-12-11 01:30 | disposition left against medical advice (07) ==
LOC: FTE 00:30
DX: Z53.21 Procedure and treatment not carried out due to patient leaving prior to being seen by health care provider (principal)

== ENCOUNTER 2016-12-11 01:49 | Outpatient (CLI) | payer OTHER ==
[~2016-12-11] VITALS: Ht 160 cm; Wt 131.1 kg
[2016-12-11 01:56] VITALS: Ht 160 cm; Wt 131.1 kg
[2016-12-11 02:03] VITALS: BP 120/75; PULSE 81
[2016-12-11] MEDS ORDERED: UDMYL PO (02:06)
[2016-12-11 02:46] LABS: ADD SCAN DIFF NO
[2016-12-11 02:48] LABS: BASOPHILS % 0.2 % (0.0-2.0); EOSINOPHILS % 0.5 % (0.0-7.0); HEMATOCRIT 37.1 % (37.0-47.0); HEMOGLOBIN 12.4 g/dl (12.0-16.0); LYMPHOCYTES # 1.4 10^3/ul (0.8-2.9); MEAN CORPUSCULAR HEMOGLOBIN 30.2 pg (29.0-33.0); MEAN CORPUSCULAR HGB CONC 33.4 g/dl (32.0-37.0); MEAN CORPUSCULAR VOLUME 90.3 fl (82.0-101.0); MEAN PLATELET VOLUME 10.8 fl (7.4-10.4); MONOCYTE # 0.7 10^3/ul (0.3-0.9); MONOCYTES % 8.2 % (0.0-11.0); NEUTROPHIL # 6.6 10^3/ul (1.6-7.5); NEUTROPHILS % 74.2 % (39.0-77.0); PLATELET COUNT 198 10^3/UL (140-415); RED BLOOD COUNT 4.11 10^6/ul (4.20-5.40); RED CELL DISTRIBUTION WIDTH 14.3 % (11.5-14.5); WHITE BLOOD COUNT 8.9 10^3/ul (4.8-10.8)
[2016-12-11 02:59] LABS: ALBUMIN 3.6 g/dl (3.3-4.9)
[2016-12-11 03:00] LABS: POTASSIUM 3.9 mmol/L (3.5-5.1)
[2016-12-11] MEDS ORDERED: NIFEdipine 10 MG CAP PO SCH (03:00)
[2016-12-11 03:02] LABS: BILIRUBIN,DIRECT 1.7 mg/dl (0.00-0.20); BILIRUBIN,INDIRECT 0.8 mg/dl (0-1.1); BILIRUBIN,TOTAL 2.5 mg/dl (0.2-1.3); CREATININE 0.5 mg/dl (0.44-1.00); TOTAL PROTEIN 6.8 g/dl (6.1-8.1)
[2016-12-11 03:03] LABS: CALCIUM 9.8 mg/dl (8.4-10.2)
[2016-12-11 03:05] LABS: ALBUMIN/GLOBULIN RATIO 1.12
--- NOTE | 2016-12-11 03:06 | RADRPT ---
PROCEDURE: OB ultrasound for biophysical profile CLINICAL INDICATION: Decreased motion. TECHNIQUE: Multiple sonographic images of the gravid uterus performed. The images were reviewed on a PACS workstation. COMPARISON: 12/05/2016 FINDINGS: A single live intrauterine is identified with heart rate of 131 bpm. Fet us is in a cephalic presentation. Placenta is located posteriorly. Biophysical profile: breathing movement = 2/2 tone = 2/2 motion = 2/2 NJ = 2/2 NJ = 16.2 cm cm. IMPRESSION: 1. Single live intrauterine gestation. 2. Biophysical profile = 8/8. 3. NJ = 16.2 cm. RPTAT: HMVK .Rojas Bailey MD, Date Time Electronically viewed and signed by .Rojas Bailey MD, MD on 12/11/2016 03:06 .K/
[2016-12-11 04:18] LABS: ADD UMIC YES; URINE BILIRUBIN (Dip) 2+ (NEGATIVE); URINE BLOOD (Dip) NEGATIVE (NEGATIVE); URINE COLOR LT. YELLOW (YELLOW); URINE GLUCOSE (Dip) NEGATIVE (NEGATIVE); URINE KETONES (Dip) 3+ (NEGATIVE); URINE LEUKOCYTE ESTERASE (Dip) 3+ (NEGATIVE); URINE NITRITE (Dip) NEGATIVE (NEGATIVE); URINE TOTAL PROTEIN (Dip) NEGATIVE (NEGATIVE); URINE UROBILINOGEN (Dip) 1.0 E.U./dL (0.1-1.0)
[2016-12-11 04:45] LABS: ICTOTEST POSITIVE (NEGATIVE)
[2016-12-11 04:46] LABS: BACTERIA,URINE MODERATE; SQUAMOUS EPITHELIAL CELL,UR FEW; URINE RBCS 0-2 /HPF (0)
--- NOTE | 2016-12-11 06:46 | PN ---
Date/Time of Note Date/Time of Note DATE: 12/11/16 TIME: 06:41 OB Subjective Subjective Subjective 31 yo P1 @ 36 wks, c/o decreased FM, but now feels baby moving. She also c/o itching, and has a slight rash on abdomen. No VB, no LOF, no ctx. Patient was hospitalized all last week for pain due to gallstones and is known to have elevated liver enzymes OB Objective Objective Objective Abdomen- gravid, n/t SVE- deferred FHT- Cat I [place]- no ctx Sono- BPP 05/23, NJ 16.2 Abdomen: WNL Accelerations: Accelerations Present Decelerations: No Decelerations Varibility: Moderate Contractions on Admission: None OB Assessment/Plan Other Assessment: 31 yo P1 @ 36 wks w decreased FM and itching, now feels baby move - bpp 05/23, cat I FHT Other plan: reassuring status, bile acids drawn LFT's slightly elevated from last admission, AST/ALT 236/178 d/c home w [facility] advised; f/u prn patient warned that the concern is stillbirth which is a risk of cholestasis of she will go and see Dr. Qiu tomorrow SIMON BECKHAM MD Dec 11, 2016 06:46
[2016-12-11] MEDS ORDERED: DIPHENHYDRAMINE 25 MG CAP PO ONE (07:00)
[2016-12-11] MEDS ORDERED: DIPHENHYDRAMINE 50 MG CAP PO ONE (07:00)
[2016-12-16 12:42] LABS: CHOLIC ACID 189.6 umol/L (< OR = 1.8); DEOXYCHOLIC ACID 5.6 umol/L (< OR = 2.4); TOTAL BILE ACIDS 275.2 umol/L (< OR = 6.8)
== END 2016-12-11 07:00 | disposition home or self-care (01) ==
LOC: OBT 01:49 → L-D 01:49 → OBT 07:00
PROVIDERS: ATTEND Obstetrics & Gynecology
DX: O36.8130 Decreased fetal movements, third trimester, not applicable or unspecified (principal); O26.893 Other specified pregnancy related conditions, third trimester; Z3A.36 36 weeks gestation of pregnancy
CPT/HCPCS: 76818; 80053; 81001; 83789; 85025; Z7500; Z7610; 81003; G0463

== ENCOUNTER 2016-12-13 12:56 | Outpatient (CLI) | payer OTHER ==
[~2016-12-13] VITALS: Ht 160 cm; Wt 128.7 kg
[~2016-12-13 12:56] MED LIST changes: +UDMYL PO
[2016-12-13 13:27] VITALS: BP 115/72; PULSE 92; RESP 18
[2016-12-13] MEDS ORDERED: NIFEdipine 10 MG CAP ONE (14:29)
[2016-12-13] MEDS ORDERED: NIFEdipine 10 MG CAP PO ONE (14:30)
--- NOTE | 2016-12-13 15:39 | RADRPT ---
PROCEDURE: US OB biophysical profile. CLINICAL INDICATION: evaluation TECHNIQUE: Multiple sonographic images of the pelvis were obtained. The images were reviewed on a PACS workstation. COMPARISON: Obstetrical ultrasound from 12/11/2016 FINDINGS: There is a single viable intrauterine gestation. Cardiac activity is present with 148 beats per min bridget. There is a vertex presentation. The placenta is posterior. There is no evidence of placental abruption. There is a normal amount of amniotic fluid with an NJ = 16.5 cm. Biophysical profile: movement 2/2 tone 2/2. breathing 2/2 NJ 2/2 Total 05/23 RPTAT: AA . IMPRESSION: Normal biophysical profile. Normal NJ. Physician Norma Date Time Electronically viewed and signed by Physician Norma on 12/13/2016 15:39 RA/
--- NOTE | 2016-12-13 15:57 | QN ---
Documentation Comment 31 y/o female at 36 weeks self referred herself to OB triage for passing mucous plug patient has gallstones Cx: 50% closed and high on EFM no U/C seen and or bleeding pat is on Procardia will D/C home on bed + pelvic rest continue Nifedipine JEREMIAH AGUILAR MD Dec 13, 2016 15:57
== END 2016-12-13 16:07 | disposition home or self-care (01) ==
LOC: OBT 12:56 → L-D 12:57 → OBT 16:07
PROVIDERS: ATTEND Obstetrics & Gynecology
DX: O60.03 Preterm labor without delivery, third trimester (principal); O99.613 Diseases of the digestive system complicating pregnancy, third trimester; K80.20 Calculus of gallbladder without cholecystitis without obstruction; Z3A.36 36 weeks gestation of pregnancy
CPT/HCPCS: 76818; Z7500; Z7610; G0463

== ENCOUNTER 2016-12-16 10:34 | Outpatient (CLI) | payer OTHER ==
[~2016-12-16] VITALS: Ht 160 cm; Wt 128.7 kg
[~2016-12-16 10:34] MED LIST changes: -ACET500T98 PO
[2016-12-16 10:37] VITALS: Ht 160 cm; Wt 128.7 kg
[2016-12-16 10:43] VITALS: BP 109/60; PULSE 103; RESP 18
[2016-12-16] MEDS ORDERED: FAMO20TA18 PO (10:50)
--- NOTE | 2016-12-16 11:56 | RADRPT ---
PROCEDURE: OB ultrasound for biophysical profile CLINICAL INDICATION: NJ. well being.: Stasis. TECHNIQUE: Multiple sonographic images of the pelvis were obtained. Transabdominal view of the gr avid uterus are available for review. The images were reviewed on a PACS workstation. COMPARISON: OB ultrasound 12/13/2016 FINDINGS: breathing movement = 2/2 tone = 2/2 motion = 2/2 NJ = 2/2 NJ = 14.6 cm Single live intrauterine with cardiac activity. heart rate equals 148 beats p er minute. Presentation is cephalic. The placenta is posterior. IMPRESSION: 1. Single viable intrauterine gestation. 2. Biophysical profile = 8/8. 3. NJ = 14.6 cm. RPTAT: AA .Ozzy Simmons MD, MD Date Time Electronically viewed and signed by .Ozzy Simmons MD, MD on 12/16/2016 11:55 .B/
--- NOTE | 2016-12-16 12:41 | TRIAGE ---
OB Triage Datetime Report Generated by CPN: 12/16/2016 12:40 Datetime: 12/16/2016 11:07 Stage of : OB Triage Monitor Mode: External Pattern: Normal: <= 5 Contractions in 10 Minutes Resting Tone [place]: Relaxed Contraction Comments: NONE NOTED Heart Rate FHR Baseline Rate: 135 Monitor Mode: External US FHR Baseline Changes: No Baseline Change Variability: Moderate 6-25 bpm Accelerations: 15X15 Decelerations: None Category: Category I Pain Assessment Pain Presence: None/Denies Pain Type: N/A Datetime: 12/16/2016 10:46 Assessment Type: Triage Maternal Assessment Level of Consciousness: Fully Conscious DTR's/Clonus: DTRs 2+; No Clonus Headache: Denies Blurred Vision: No Respiratory Effort: Unlabored; Regular Rhythm; Equal Expansion Breath Sounds, Left: Clear and Equal Breath Sounds, Right: Clear and Equal Nausea/Vomiting: Denies RUQ Epigastric Pain: Denies Lower Extremities Edema: None Upper Extremities Edema: None Facial Edema: None Fall Risk Assessment History of Falling: (0) No Secondary Diagnosis: (0) No Ambulatory Aid: (0) Bedrest/Nurse Assist IV Therapy: (0) No Gait: (0) Normal/Bedrest/Immobile Mental Status: (0) Oriented to Own Ability Fall Score: 0 Fall Risk Score Definition: No Risk: No action required Datetime: 12/16/2016 10:38 Time of Arrival: 12/16/2016 10:33 EGA: 35.4 Arrived By: Ambulatory Arrived From: Home Movement: Present Contractions: Denies/Absent Rupture of Membranes: Denies Vaginal Bleeding: None Vaginal Discharge: Denies Recent Sexual Intercouse: Denies Abdominal Trauma: Not Applicable Patient Complaints: Other Additional Patient Complaints: ITCHING, BLEEDING WHEN WIPING LAST NIGHT Time Provider Notified: 12/16/2016 11:15 Provider Notified: RUPAL Initial Plan: NST, CALL OB FOR FURTHER ORDERS - BPP Datetime: 12/13/2016 15:00 Labor Evaluation Frequency: 0 Monitor Mode: External Resting Tone [place]: Relaxed Heart Rate FHR Baseline Rate: 135 Monitor Mode: External US FHR Baseline Changes: No Baseline Change Variability: Moderate 6-25 bpm Accelerations: 15X15 Category: Category I Datetime: 12/13/2016 14:41 Vaginal Exam Dilatation (cms): 0.0 Effacement (%): 50 Station: -3 Exam By: M MCGRATH Vaginal Bleeding: None Cervix, Consistency: Moderate Cervix, Position: Posterior Datetime: 12/13/2016 13:59 Stage of : OB Triage Labor Evaluation Frequency: 0 Monitor Mode: External Resting Tone [place]: Relaxed Heart Rate FHR Baseline Rate: 135 Monitor Mode: External US Variability: Moderate 6-25 bpm Accelerations: 15X15 Decelerations: None Category: Category I Datetime: 12/13/2016 13:21 Assessment Type: Triage Maternal Assessment Level of Consciousness: Fully Conscious DTR's/Clonus: DTRs 2+; No Clonus Headache: Denies Blurred Vision: No Respiratory Effort: Unlabored Breath Sounds, Left: Clear and Equal Breath Sounds, Right: Clear and Equal Nausea/Vomiting: Denies RUQ Epigastric Pain: Denies Lower Extremities Edema: None Degree: None Upper Extremities Edema: None Degree: None Facial Edema: None Fall Risk Assessment History of Falling: (0) No Secondary Diagnosis: (15) Yes (Annotations: Gallstones PTL C/S x 1) Ambulatory Aid: (0) Bedrest/Nurse Assist IV Therapy: (0) No Gait: (0) Normal/Bedrest/Immobile Mental Status: (0) Oriented to Own Ability Fall Score: 15 Fall Risk Score Definition: No Risk: No action required Datetime: 12/13/2016 13:18 Time of Arrival: 12/13/2016 12:55 EGA: 35.1 Arrived By: Ambulatory Arrived From: Home Chief Complaint: cramping x2/hr since 100. Blood tinged mucousy discharge Movement: Present Contractions: Irregular Time Contractions Began: 12/13/2016 11:00 Contractions: x2/hr Rupture of Membranes: Denies Vaginal Bleeding: Scant Vaginal Discharge: Denies Recent Sexual Intercouse: Denies Abdominal Trauma: Not Applicable Patient Complaints: Cramping; Other Additional Patient Complaints: MUCOUSY Initial Plan: VS, EFM, SVE, BPP Datetime: 12/13/2016 13:13 Monitor Mode: External US Datetime: 12/13/2016 13:12 Monitor Mode: External US Datetime: 12/13/2016 13:06 Stage of : OB Triage Datetime: 12/11/2016 02:11 EGA: 34.6 Datetime: 12/11/2016 01:58 Fall Score: 0 Fall Risk Score Definition: No Risk: No action required Datetime: 12/09/2016 07:30 Fall Score: 20 Fall Risk Score Definition: No Risk: No action required Datetime: 12/08/2016 19:59 Fall Score: 20 Fall Risk Score Definition: No Risk: No action required Datetime: 12/08/2016 07:47 Fall Score: 20 Fall Risk Score Definition: No Risk: No action required Datetime: 12/07/2016 23:56 Fall Score: 20 Fall Risk Score Definition: No Risk: No action required Datetime: 12/07/2016 20:12 Fall Score: 20 Fall Risk Score Definition: No Risk: No action required Datetime: 12/07/2016 07:45 Fall Score: 20 Fall Risk Score Definition: No Risk: No action required Datetime: 12/06/2016 19:17 Fall Score: 20 Fall Risk Score Definition: No Risk: No action required Datetime: 12/06/2016 08:06 Fall Score: 20 Fall Risk Score Definition: No Risk: No action required Datetime: 12/05/2016 19:42 Fall Score: 20 Fall Risk Score Definition: No Risk: No action required Datetime: 12/05/2016 08:46 Fall Score: 20 Fall Risk Score Definition: No Risk: No action required Datetime: 12/05/2016 04:29 EGA: 34.0 Datetime: 12/05/2016 04:18 Fall Score: 0 Fall Risk Score Definition: No Risk: No action required Datetime: 11/28/2016 19:43 Fall Score: 0 Fall Risk Score Definition: No Risk: No action required Datetime: 11/28/2016 03:37 Fall Score: 20 Fall Risk Score Definition: No Risk: No action required Datetime: 11/28/2016 03:02 EGA: 33.0 Datetime: 11/27/2016 22:18 Fall Score: 0 Fall Risk Score Definition: No Risk: No action required Datetime: 11/27/2016 22:08 EGA: 32.6 Datetime: 11/03/2016 13:32 Fall Score: 0 Fall Risk Score Definition: No Risk: No action required Datetime: 11/03/2016 13:23 EGA: 29.3
--- NOTE | 2016-12-16 14:10 | HP ---
Date/Time of Note Date/Time of Note DATE: 12/16/16 TIME: 14:08 OB - History Hx of Present Free Text/Dictation OB Triage Pt is a 31yo at 35+4 who presented to triage for NST/NJ in the setting of cholestasis. Pt states itching is improved with Benadryl. Reports normal FM, denies LOF, VB or UCs. PROCEDURE: OB ultrasound for biophysical profile CLINICAL INDICATION: NJ. well being.: Stasis. TECHNIQUE: Multiple sonographic images of the pelvis were obtained. Transabdominal view of the gravid uterus are available for review. The images were reviewed on a PACS workstation. COMPARISON: OB ultrasound 12/13/2016 FINDINGS: breathing movement = 2/2 tone = 2/2 motion = 2/2 NJ = 2/2 NJ = 14.6 cm Single live intrauterine with cardiac activity. heart rate equals 148 beats per minute. Presentation is cephalic. The placenta is posterior. IMPRESSION: 1. Single viable intrauterine gestation. 2. Biophysical profile = 8/8. 3. NJ = 14.6 cm. Estimated Due Date: Jan 16, 2017 : 2 Para: 1 Care: Good Care OB Admission Exam Vital Signs Vital Signs Vital Signs Date Time Temp Pulse Resp B/P Pulse Ox O2 Delivery O2 Flow Rate FiO2 12/16/16 10:43 97.6 103 18 109/60 Room Air Physical Exam Heart Rate: 140's (to 150s) Accelerations: Accelerations Present Decelerations: No Decelerations Varibility: Moderate Contractions on Admission: None OB Assessment/Plan Other Assessment: Cholestasis of Normal surveillance Other plan: Results of NST/NJ/BPP discussed with Dr. Qiu and pt appropriate for d/c home F/up with ANTC on 12/19/16 FKC, PTL, PPROM precautions reviewed Questions answered to patient's satisfaction DEBBIE CHILD MD Dec 16, 2016 14:09
== END 2016-12-16 12:35 | disposition home or self-care (01) ==
LOC: L-D 10:34 → OBT 10:34
PROVIDERS: ATTEND Obstetrics & Gynecology
DX: O26.613 Liver and biliary tract disorders in pregnancy, third trimester (principal); K83.1 Obstruction of bile duct; Z3A.35 35 weeks gestation of pregnancy
CPT/HCPCS: 76818; Z7500; G0463

== ENCOUNTER 2016-12-19 11:52 | Outpatient (CLI) | payer OTHER ==
[~2016-12-19] VITALS: Ht 160 cm; Wt 128.0 kg
[~2016-12-19 11:52] MED LIST changes: +FAMO20TA18 PO
[2016-12-19 12:09] VITALS: Ht 160 cm; Wt 128.0 kg
--- NOTE | 2016-12-19 12:25 | RADRPT ---
PROCEDURE: US OB biophysical profile. CLINICAL INDICATION: Cholestasis TECHNIQUE: Multiple sonographic images of the pelvis were obtained. The images were reviewed on a PACS workstation. COMPARISON: Obstetrical ultrasound from 12/16/2016 FINDINGS: There is a single viable intrauterine gestation. Cardiac activity is present with 141 beats per min [place]. There is a vertex presentation. The placenta is posterior. There is no evidence of placental abruption. There is a normal amount of amniotic fluid with an NJ = 11.2 cm. Biophysical profile: movement 2/2 tone 2/2. breathing 2/2 NJ 2/2 Total 05/23 RPTAT: AA . IMPRESSION: Normal biophysical profile. Normal NJ. Physician Norma Date Time Electronically viewed and signed by Physician Norma on 12/19/2016 12:24 RA/
--- NOTE | 2016-12-19 13:04 | TRIAGE ---
OB Triage Datetime Report Generated by CPN: 12/19/2016 13:04 Datetime: 12/19/2016 12:59 Stage of : OB Triage Maternal Assessment Level of Consciousness: Fully Conscious DTR's/Clonus: DTRs 1+ Headache: Denies Breath Sounds, Left: Clear and Equal Breath Sounds, Right: Clear and Equal Nausea/Vomiting: Denies RUQ Epigastric Pain: Denies Monitor Mode: External Duration (sec)2399: 50 Quality: Mild Pattern: Normal: <= 5 Contractions in 10 Minutes Resting Tone [place]: Relaxed Heart Rate FHR Baseline Rate: 135 Monitor Mode: External US Variability: Moderate 6-25 bpm Accelerations: 15X15 Decelerations: None Category: Category I Pain Assessment Pain Scale: 0 Pain Presence: None/Denies Pain Type: N/A Pain Goal: 3 Vaginal Exam Membrane Status: Intact Datetime: 12/19/2016 12:38 Maternal Assessment Level of Consciousness: Fully Conscious DTR's/Clonus: DTRs 1+ Headache: Denies Blurred Vision: No Respiratory Effort: Unlabored Breath Sounds, Left: Clear and Equal Breath Sounds, Right: Clear and Equal Nausea/Vomiting: Denies RUQ Epigastric Pain: Denies Facial Edema: None Labor Evaluation Frequency: X2 Monitor Mode: External Duration (sec)2399: 50 Quality: Mild Pattern: Normal: <= 5 Contractions in 10 Minutes Resting Tone [place]: Relaxed Heart Rate FHR Baseline Rate: 135 Monitor Mode: External US Variability: Moderate 6-25 bpm Accelerations: 15X15 Decelerations: None Category: Category I Pain Assessment Pain Scale: 0 Pain Presence: None/Denies Pain Type: N/A Pain Goal: 3 Vaginal Exam Membrane Status: Intact Datetime: 12/19/2016 12:00 Assessment Type: Triage Maternal Assessment Level of Consciousness: Fully Conscious DTR's/Clonus: DTRs 2+; No Clonus Headache: Denies Blurred Vision: No Respiratory Effort: Unlabored; Regular Rhythm; Equal Expansion Breath Sounds, Left: Clear and Equal Breath Sounds, Right: Clear and Equal Nausea/Vomiting: Denies RUQ Epigastric Pain: Denies Lower Extremities Edema: None Degree: None Upper Extremities Edema: None Degree: None Facial Edema: None Fall Risk Assessment History of Falling: (0) No Secondary Diagnosis: (0) No Ambulatory Aid: (0) Bedrest/Nurse Assist IV Therapy: (0) No Gait: (0) Normal/Bedrest/Immobile Mental Status: (0) Oriented to Own Ability Fall Score: 0 Fall Risk Score Definition: No Risk: No action required Datetime: 12/16/2016 12:30 Time of Arrival: 12/19/2016 11:49 EGA: 37.2 Arrived By: Ambulatory Arrived From: Home Chief Complaint: NST AND BPP FOR CHOLESTASIS Movement: Present Contractions: Denies/Absent Rupture of Membranes: Denies Vaginal Bleeding: None Vaginal Discharge: Denies Recent Sexual Intercouse: Denies Abdominal Trauma: Not Applicable Patient Complaints: Other Additional Patient Complaints: NONE Time Provider Notified: 12/19/2016 12:30 Provider Notified: RUPAL Initial Plan: NST AND BPP Datetime: 12/16/2016 10:46 Fall Score: 0 Fall Risk Score Definition: No Risk: No action required Datetime: 12/16/2016 10:38 EGA: 36.6 Datetime: 12/13/2016 13:21 Fall Score: 15 Fall Risk Score Definition: No Risk: No action required Datetime: 12/13/2016 13:18 EGA: 36.3 Datetime: 12/11/2016 02:11 EGA: 36.1 Datetime: 12/11/2016 01:58 Fall Score: 0 Fall Risk Score Definition: No Risk: No action required Datetime: 12/09/2016 07:30 Fall Score: 20 Fall Risk Score Definition: No Risk: No action required Datetime: 12/08/2016 19:59 Fall Score: 20 Fall Risk Score Definition: No Risk: No action required Datetime: 12/08/2016 07:47 Fall Score: 20 Fall Risk Score Definition: No Risk: No action required Datetime: 12/07/2016 23:56 Fall Score: 20 Fall Risk Score Definition: No Risk: No action required Datetime: 12/07/2016 20:12 Fall Score: 20 Fall Risk Score Definition: No Risk: No action required Datetime: 12/07/2016 07:45 Fall Score: 20 Fall Risk Score Definition: No Risk: No action required Datetime: 12/06/2016 19:17 Fall Score: 20 Fall Risk Score Definition: No Risk: No action required Datetime: 12/06/2016 08:06 Fall Score: 20 Fall Risk Score Definition: No Risk: No action required Datetime: 12/05/2016 19:42 Fall Score: 20 Fall Risk Score Definition: No Risk: No action required Datetime: 12/05/2016 08:46 Fall Score: 20 Fall Risk Score Definition: No Risk: No action required Datetime: 12/05/2016 04:29 EGA: 35.2 Datetime: 12/05/2016 04:18 Fall Score: 0 Fall Risk Score Definition: No Risk: No action required Datetime: 11/28/2016 19:43 Fall Score: 0 Fall Risk Score Definition: No Risk: No action required Datetime: 11/28/2016 03:37 Fall Score: 20 Fall Risk Score Definition: No Risk: No action required Datetime: 11/28/2016 03:02 EGA: 34.2 Datetime: 11/27/2016 22:18 Fall Score: 0 Fall Risk Score Definition: No Risk: No action required Datetime: 11/27/2016 22:08 EGA: 34.1 Datetime: 11/03/2016 13:32 Fall Score: 0 Fall Risk Score Definition: No Risk: No action required Datetime: 11/03/2016 13:23 EGA: 30.5
== END 2016-12-19 13:08 | disposition home or self-care (01) ==
LOC: L-D 11:52 → OBT 11:52
PROVIDERS: ATTEND Obstetrics & Gynecology
DX: O26.613 Liver and biliary tract disorders in pregnancy, third trimester (principal); K83.1 Obstruction of bile duct; Z3A.37 37 weeks gestation of pregnancy
CPT/HCPCS: 76818; Z7500; G0463

== ENCOUNTER 2016-12-21 10:41 | Inpatient (IN) | payer OTHER ==
[~2016-12-21] VITALS: Ht 160 cm; Wt 129.6 kg
[~2016-12-21 10:41] MED LIST changes: +EPHEDrine SULFATE 50 MG/5 ML SYG ONE
[2016-12-21] MEDS ORDERED: OXYTOCIN 30 UNITS/LR 500 ML IV SCH (11:30)
[2016-12-21] MEDS ORDERED: CEFAZOLIN 3 GM in DEXTROSE 5% 100 ML IV SCH (11:30)
[2016-12-21] MEDS ORDERED: METHYLERGONOVINE 0.2 MG INJ IM PRN ×2 (11:30→23:00)
[2016-12-21] MEDS ORDERED: OXYTOCIN 30 UNITS/LR 500 ML IV PRN ×2 (11:30→23:00)
[2016-12-21] MEDS ORDERED: MISOPROSTOL 200 MCG TAB PR PRN ×2 (11:30→23:00)
[2016-12-21] MEDS ORDERED: CARBOPROST 250 MCG INJ IM PRN ×2 (11:30→23:00)
[2016-12-21 11:31] VITALS: Ht 160 cm; Wt 129.6 kg
[2016-12-21 11:32] VITALS: BP 119/59; PULSE 86; RESP 20
[2016-12-21 11:36] LABS: ADD SCAN DIFF NO
[2016-12-21 11:52] LABS: INR 0.97; PROTIME 12.9 Sec (12.2-14.2)
[2016-12-21 12:02] LABS: BASOPHILS % 0.2 % (0.0-2.0); EOSINOPHILS # 0.1 10^3/ul (0.0-0.5); EOSINOPHILS % 0.8 % (0.0-7.0); HEMATOCRIT 34.3 % (37.0-47.0); HEMOGLOBIN 11.5 g/dl (12.0-16.0); LYMPHOCYTES # 1.5 10^3/ul (0.8-2.9); LYMPHOCYTES % 16.4 % (15.0-51.0); MEAN CORPUSCULAR HEMOGLOBIN 29.9 pg (29.0-33.0); MEAN CORPUSCULAR HGB CONC 33.5 g/dl (32.0-37.0); MEAN CORPUSCULAR VOLUME 89.1 fl (82.0-101.0); MEAN PLATELET VOLUME 12.3 fl (7.4-10.4); MONOCYTE # 0.7 10^3/ul (0.3-0.9); MONOCYTES % 8.1 % (0.0-11.0); NEUTROPHIL # 6.5 10^3/ul (1.6-7.5); NEUTROPHILS % 73.5 % (39.0-77.0); PLATELET COUNT 205 10^3/UL (140-415); RED BLOOD COUNT 3.85 10^6/ul (4.20-5.40); RED CELL DISTRIBUTION WIDTH 13.7 % (11.5-14.5); WHITE BLOOD COUNT 8.9 10^3/ul (4.8-10.8)
[2016-12-21 12:05] LABS: ALBUMIN 3.5 g/dl (3.3-4.9)
--- NOTE | 2016-12-21 12:06 | TRIAGE ---
OB Triage Datetime Report Generated by CPN: 12/21/2016 12:05 Datetime: 12/21/2016 12:01 Time of Arrival: 12/21/2016 10:36 EGA: 37.4 Arrived By: Ambulatory Arrived From: Home Chief Complaint: ITCHHING FOR 2 WEEKS Movement: Present Contractions: Denies/Absent Rupture of Membranes: Denies Vaginal Bleeding: None Vaginal Discharge: Denies Recent Sexual Intercouse: Denies Abdominal Trauma: Not Applicable Patient Complaints: None Additional Patient Complaints: PT REPORT MD'S OFFICE CALLED HER TO REPORT TO [facility] FOR EXAMINATION OF ELEVATED LIVER ENZYMES Time Provider Notified: 12/21/2016 11:20 Provider Notified: DR. GOLDSMITH Initial Plan: NST Datetime: 12/19/2016 12:00 Fall Risk Assessment Fall Score: 0 Fall Risk Score Definition: No Risk: No action required Datetime: 12/16/2016 12:30 EGA: 37.2 Datetime: 12/16/2016 10:46 Fall Risk Assessment Fall Score: 0 Fall Risk Score Definition: No Risk: No action required Datetime: 12/16/2016 10:38 EGA: 36.6 Datetime: 12/13/2016 13:21 Fall Risk Assessment Fall Score: 15 Fall Risk Score Definition: No Risk: No action required Datetime: 12/13/2016 13:18 EGA: 36.3 Datetime: 12/11/2016 02:11 EGA: 36.1 Datetime: 12/11/2016 01:58 Fall Risk Assessment Fall Score: 0 Fall Risk Score Definition: No Risk: No action required Datetime: 12/09/2016 07:30 Fall Risk Assessment Fall Score: 20 Fall Risk Score Definition: No Risk: No action required Datetime: 12/08/2016 19:59 Fall Risk Assessment Fall Score: 20 Fall Risk Score Definition: No Risk: No action required Datetime: 12/08/2016 07:47 Fall Risk Assessment Fall Score: 20 Fall Risk Score Definition: No Risk: No action required Datetime: 12/07/2016 23:56 Fall Risk Assessment Fall Score: 20 Fall Risk Score Definition: No Risk: No action required Datetime: 12/07/2016 20:12 Fall Risk Assessment Fall Score: 20 Fall Risk Score Definition: No Risk: No action required Datetime: 12/07/2016 07:45 Fall Risk Assessment Fall Score: 20 Fall Risk Score Definition: No Risk: No action required Datetime: 12/06/2016 19:17 Fall Risk Assessment Fall Score: 20 Fall Risk Score Definition: No Risk: No action required Datetime: 12/06/2016 08:06 Fall Risk Assessment Fall Score: 20 Fall Risk Score Definition: No Risk: No action required Datetime: 12/05/2016 19:42 Fall Risk Assessment Fall Score: 20 Fall Risk Score Definition: No Risk: No action required Datetime: 12/05/2016 08:46 Fall Risk Assessment Fall Score: 20 Fall Risk Score Definition: No Risk: No action required Datetime: 12/05/2016 04:29 EGA: 35.2 Datetime: 12/05/2016 04:18 Fall Risk Assessment Fall Score: 0 Fall Risk Score Definition: No Risk: No action required Datetime: 11/28/2016 19:43 Fall Risk Assessment Fall Score: 0 Fall Risk Score Definition: No Risk: No action required Datetime: 11/28/2016 03:37 Fall Risk Assessment Fall Score: 20 Fall Risk Score Definition: No Risk: No action required Datetime: 11/28/2016 03:02 EGA: 34.2 Datetime: 11/27/2016 22:18 Fall Risk Assessment Fall Score: 0 Fall Risk Score Definition: No Risk: No action required Datetime: 11/27/2016 22:08 EGA: 34.1 Datetime: 11/03/2016 13:32 Fall Risk Assessment Fall Score: 0 Fall Risk Score Definition: No Risk: No action required Datetime: 11/03/2016 13:23 EGA: 30.5
[2016-12-21 12:07] LABS: BILIRUBIN,INDIRECT 0.4 mg/dl (0-1.1); BILIRUBIN,TOTAL 0.4 mg/dl (0.2-1.3); TOTAL PROTEIN 6.8 g/dl (6.1-8.1)
[2016-12-21] MEDS: LACTATED RINGER'S 1,000 ML IV SCH ×3 (12:44→16:59)
[2016-12-21] MEDS ORDERED: FENTAnyl 50 MCG/ML VIAL ONE (17:52)
[2016-12-21] MEDS ORDERED: OXYTOCIN 10 UNIT INJ ONE (17:52)
[2016-12-21] MEDS ORDERED: morphine SULFATE/PF (10 MG/10 ML) INJ ONE (17:52)
[2016-12-21] MEDS ORDERED: PHENYLephrine (100 MCG/ML) 5ML SYG ONE (17:52)
[2016-12-21] MEDS ORDERED: METOCLOPRAMIDE 10 MG INJ ONE (17:52)
[2016-12-21] MEDS ORDERED: DIPHENHYDRAMINE 50 MG INJ IV PRN ×2 (19:00)
[2016-12-21] MEDS ORDERED: hydrALAzine 20 MG INJ IV PRN (19:00)
[2016-12-21] MEDS ORDERED: HYDROmorphONE (0.2 MG/ML) 10ML SYG IV PRN ×3 (19:00)
[2016-12-21] MEDS ORDERED: FENTAnyl 50 MCG/ML VIAL IV PRN ×3 (19:00)
[2016-12-21] MEDS ORDERED: TRIMETHOBENZAMIDE 100 MG/ML VIAL IM PRN (19:00)
[2016-12-21] MEDS ORDERED: EPHEDrine SULFATE 50 MG/5 ML SYG IV PRN (19:00)
[2016-12-21] MEDS ORDERED: morphine 2 MG INJ IV PRN ×2 (19:00)
[2016-12-21] MEDS ORDERED: NALOXONE (0.4 MG/ML) INJ IV PRN (19:00)
[2016-12-21] MEDS ORDERED: LABETALOL HCL 20MG INJ IV PRN (19:00)
[2016-12-21] MEDS ORDERED: ONDANSETRON 4 MG INJ IV PRN ×2 (19:00)
[2016-12-21] MEDS ORDERED: ZOLPIDEM 5 MG TAB PO PRN (19:00)
--- NOTE | 2016-12-21 19:18 | HP ---
Date/Time of Note Date/Time of Note DATE: 12/21/16 TIME: 19:13 OB - History Hx of Present Free Text/Dictation sent in from clinic for elevated bile acids to>90 consulted perinatologist who recommended to proceed with delivery Last Menstrual Period: Apr 11, 2016 Estimated Due Date: Jan 17, 2017 : 2 Para: 1 Care: Good Care Ultrasounds: Normal mid trimester US Obstetrical Complications: Other (cholestasis, and positive GBS ) Medical Complications: Other (elevated bile acis and gall stones with possible CBD obstructions ) Past Family/Social History * Past Medical, Surgical, Family and Obstetric Histories reviewed from chart. Blood Type: A+ Rubella: immune RPR/VDRL: Negative GBS Status: Positive HBsAG: Negative OB Admission Exam Vital Signs Vital Signs Vital Signs Date Time Temp Pulse Resp B/P Pulse Ox O2 Delivery O2 Flow Rate FiO2 12/21/16 11:32 98.1 86 20 119/59 96 Room Air Physical Exam HEENT: WNL Heart: Rhythm Normal Lungs: Clear, Equal Abdomen: WNL Extremities: Normal Reflexes: Normal Cervical Dilatation: None Effacement: 0% Station: -3 Membranes: Intact Heart Rate: 130's Accelerations: Accelerations Present Decelerations: No Decelerations Varibility: Moderate Contractions on Admission: None Last 72 hours Lab Results CBC & BMP 12/21/16 11:09 Liver Function Test 12/21/16 11:09 Alanine Aminotransferase (ALT/SGPT) 113 H Albumin 3.5 Alkaline Phosphatase 181 H Aspartate Amino Transf (AST/SGOT) 79 H Direct Bilirubin 0.00 Total Protein 6.8 OB Assessment/Plan Other Assessment: severe cholestasis pf 36.5 weeks previous C/S X1 Other plan: repeat C.S JEREMIAH AGUILAR MD Dec 21, 2016 19:18
--- NOTE | 2016-12-21 19:21 | OPR ---
Operative Report Planned Procedure Procedure date Dec 21, 2016 Procedure(s) repeat C/S Performed by: JEREMIAH AGUILAR MD Assisting provider: JESSICA DAO MD Anesthesiologist: Nish Badillo M.D. Pre-procedure diagnosis Severe cholestasis at 36.5 weeks possible CBD obstruction previous C/S X 1 Anesthesia Type: spinal Procedure Description Under satisfactory anaesthesia a Pfannenstiel incision was made two fingerbreadth above and parallel to the symphysis of pubis around the previous scar and previous scar was removed Incision was extended laterally to the border of the Recti muscles on either sides. Incision was carried down with sharp and blunt dissection until fascia was reached. Anterior Recti muscle fascia was incised in mid portion and incision extended laterally to the border of skin incision. Fascia was mobilized from muscle superiorly and Recti muscles were from midline using sharp and blunt dissection. Peritoneum was visualized; Avoiding bowel and bladder it was incised . Incision was extended superiorly and inferiorly. Bladder blade was placed. Posterior peritoneum covering the lower segment of the uterus and lower segment of the uterus were incised.Low transverse uterine incision was made on lower segment of the uterus. Incision extended laterally to the border of Round Lig. on either sides and baby was delivered from OT. position . Amniotic fluid appeared clear. Cord blood was obtained and cord had 3 vessels . Placenta was delivered spontaneously and appeared intact and complete. Intrauterine cavity was rubbed with a laparotomy sponge. Uterine incision was closed in 2 layers using running stitches of No1 Monocryl. Hemostasis appeared secure. Ovaries and Fallopian tubes were within normal limits. Announcing needle, lap sponge and instrument count to be correct abdomen was closed in layers as follows: Peritoneum and Recti muscles with running stitches of 20 Vicryl. Fascia with running stitch of No 1 PDS. Subcutaneous tissue with running stitches of 20 Chromic and skin was closed using dion. Patient tolerated the procedure well and was transferred to [facility] in good condition. Post-Procedure Post-procedure diagnosis S/P C/S Findings: Live Baby Specimen removed: No Complications: None Pt Condition post procedure: stable Disposition: PACU Physician Certification I, the undersigned physician, hereby certify that I have discussed the procedure described in this consent form with this patient (or the patient's legal shipping services sales representative), including: * The risk and benefits of the procedure; * Any adverse reactions that may reasonably be expected to occur; * Any alternative efficacious methods of treatment which may be medically viable ; * The potential problems that may occur during recuperation; * Potential for blood transfusion and associated risks/benefits; and * Any research or economic interest I may have regarding this treatment. I further certify that the patient/legally responsible person was encouraged to ask question and that all questions were answered. JEREMIAH AGUILAR MD Dec 21, 2016 19:21
[2016-12-21] MEDS: KETOROLAC 30 MG INJ IV PRN (21:40)
[2016-12-21 22:40] VITALS: BP 115/76; PULSE 88; RESP 18
[2016-12-21 22:55] VITALS: BP 114/64; PULSE 87; RESP 18
[2016-12-21] MEDS ORDERED: LANOLIN 7 GM TUBE TOP PRN (23:00)
[2016-12-21] MEDS ORDERED: NA PHOSPHATE/BIPHOS 133 ML ENEMA PR PRN (23:00)
[2016-12-21] MEDS ORDERED: CEFAZOLIN 2 GM/50 ML (PMX) 50 ML IV SCH (23:00)
[2016-12-21] MEDS ORDERED: OXYCODONE/ACETAMINOPHEN (5/325) TAB PO PRN (23:00)
[2016-12-21 23:10] VITALS: BP 108/66; PULSE 72; RESP 18
[2016-12-21 23:40] VITALS: BP 101/54; PULSE 97; RESP 20
[2016-12-22] VITALS (7 sets, daily range): BP systolic 94–110; BP diastolic 50–71; PULSE 66–93; RESP 16–20
[2016-12-22] MEDS: CEFAZOLIN 2 GM/50 ML (PMX) 50 ML IVPB SCH ×3 (01:41→17:35)
[2016-12-22] MEDS: LACTATED RINGER'S 1,000 ML IV SCH ×4 (03:17→22:48)
[2016-12-22] MEDS: CLINDAMYCIN 300 MG CAP PO SCH ×5 (06:05→23:28)
[2016-12-22 08:02] LABS: ADD SCAN DIFF NO
[2016-12-22 08:11] LABS: BASOPHILS % 0.2 % (0.0-2.0); EOSINOPHILS % 0.4 % (0.0-7.0); HEMOGLOBIN 9.7 g/dl (12.0-16.0); LYMPHOCYTES # 1.7 10^3/ul (0.8-2.9); LYMPHOCYTES % 15.3 % (15.0-51.0); MEAN CORPUSCULAR HEMOGLOBIN 30.3 pg (29.0-33.0); MEAN CORPUSCULAR HGB CONC 33.4 g/dl (32.0-37.0); MEAN CORPUSCULAR VOLUME 90.6 fl (82.0-101.0); MEAN PLATELET VOLUME 12.3 fl (7.4-10.4); MONOCYTES % 9.1 % (0.0-11.0); NEUTROPHILS % 74.3 % (39.0-77.0); PLATELET COUNT 156 10^3/UL (140-415); RED CELL DISTRIBUTION WIDTH 13.7 % (11.5-14.5); WHITE BLOOD COUNT 10.8 10^3/ul (4.8-10.8)
[2016-12-22] MEDS: ENOXAPARIN 40 MG/0.4 ML SYG SC SCH (09:53)
[2016-12-22] MEDS ORDERED: BISACODYL 10 MG SUPP PR ONE (10:00)
[2016-12-22] MEDS: KETOROLAC 30 MG INJ IV PRN (13:34)
--- NOTE | 2016-12-22 14:12 | PN ---
Date/Time of Note Date/Time of Note DATE: 12/22/16 TIME: 14:10 Assessment/Plan VTE Prophylaxis VTE Prophylaxis Intervention: ambulation, LMWH Lines/Catheters IV Catheter Type (from Nrsg): Peripheral IV Assessment/Plan Assessment/Plan will try to ambulate early and advance diet Subjective 24 Hr Interval Summary NO BM passing flatus Constitutional: BM, ambulates, flatus, improved, no complaints, urine output Pain Control: well controlled Exam/Review of Systems Vital Signs Vitals Vital Signs Date Time Temp Pulse Resp B/P Pulse Ox O2 Delivery O2 Flow Rate FiO2 12/22/16 12:10 98.4 78 16 99/50 Room Air 12/22/16 09:39 97 21 Intake and Output 12/21/16 12/21/16 12/22/16 15:00 23:00 07:00 Intake Total 5175 ml 425 ml Output Total 450 ml 1524 ml 400 ml Balance -450 ml 3651 ml 25 ml Exam Free Text/Dictation Abdomen: soft BS + inncision covered Constitutional: alert, oriented, well developed Psych: nl mood/affect, no complaints Head: atraumatic, normocephalic Eyes: EOMI, nl conjunctiva, nl lids, nl sclera ENMT: mucosa pink and moist, nl external ears & nose, nl lips & teeth, nl nasal mucosa & septum Neck: non-tender, supple Respiratory: clear to auscultation, normal air movement Cardiovascular: nl pulses, regular rate and rhythm Gastrointestinal: nl liver, spleen, non-tender, soft Musculoskeletal: nl extremities to inspection, nl gait and stance Extremities: normal pulses Neurological: [employer] II-XII intact, nl mental status, nl speech, nl strength Skin: nl turgor, rash or lesions Lymph: nl lymph nodes Results Result Diagram: 12/22/16 0730 JEREMIAH AGUILAR MD Dec 22, 2016 14:12
[2016-12-22] MEDS: ACETAMINOPHEN/CODEINE #3 TAB PO PRN ×2 (17:50→23:28)
[2016-12-22] MEDS: IBUPROFEN 800 MG TAB PO SCH (21:52)
[2016-12-22] MEDS: SENNA/DOCUSATE NA (8.6MG/50MG) TAB PO SCH (21:52)
[2016-12-23] MEDS: CEFAZOLIN 2 GM/50 ML (PMX) 50 ML IVPB SCH ×3 (01:34→17:51)
[2016-12-23 04:39] VITALS: BP 119/70; PULSE 78; RESP 20
[2016-12-23] MEDS: CLINDAMYCIN 300 MG CAP PO SCH ×3 (05:44→17:50)
[2016-12-23] MEDS: IBUPROFEN 800 MG TAB PO SCH ×3 (05:45→22:55)
[2016-12-23] MEDS: LACTATED RINGER'S 1,000 ML IV SCH ×3 (06:48→22:48)
[2016-12-23 08:00] VITALS: BP 105/59; PULSE 69; RESP 19
[2016-12-23] MEDS: SENNA/DOCUSATE NA (8.6MG/50MG) TAB PO SCH ×2 (09:01→20:35)
[2016-12-23] MEDS: ENOXAPARIN 40 MG/0.4 ML SYG SC SCH (09:03)
[2016-12-23 16:00] VITALS: BP 110/59; PULSE 79; RESP 19
--- NOTE | 2016-12-23 17:30 | DS ---
Date/Time of Note Date/Time of Note home next day DATE: 12/23/16 TIME: 17:27 Obstetrical Discharge Record Final Diagnosis Final Diagnosis: delivered Other Final Diagnosis severe cholestasis previous C/S X 1 Section Section: Repeat Complications Other (cholestasis, gall stones ) Condition on Discharge Physical Assessment Last Vitals: see nurses notes Voiding: Yes Bowel Movement: Yes Breast: Soft, non-tender, Filling Fundus: Firm Abdomen and Incision: soft bs + incision: healing Episiotomy: NA Calf Tenderness: No Patient Condition: Good JEREMIAH AGUILAR MD Dec 23, 2016 17:29
--- NOTE | 2016-12-23 17:36 | DS ---
Date/Time of Note Date/Time of Note home next day DATE: 12/23/16 TIME: 17:30 Discharge Summary Admission/Discharge Info Admit Date/Time Dec 21, 2016 at 11:29 Discharge Date/Time 12/24/2016 Final Diagnosis S/P C/S severe cholestasis Patient Condition: Good Procedures repeat C/S Hx of Present Illness 31 y/o female at 36.5 weeks with history of gall stones was admitted from clinic for severe cholestasis and per perinatologist underwent repeat C/S Hospital Course uncomplicated Home Meds Active Scripts [NIFEdipine] 10 MG CAP No Conflict Check, 20 MG PO Q6H, #90 1 Refill Prov:JEREMIAH AGUILAR MD 12/09/16 Reported Medications Famotidine* (Pepcid* AC) 20 Mg Tablet, 20 MG PO BID, #60 TAB 12/05/16 Calcium Carbonate (CALCIUM CARBONATE) 200 Mg Tab.chew, 200 MG PO, TAB.CHEW 12/05/16 Ferrous Sulfate (Iron) 1 Tab Tablet 03/30/11 Vits W-Ca,Fe,Fa(<1MG) ( Vitamins) 1 Tab Tablet 03/30/11 Follow-up Plan 2 days in clinic for staple removal JEREMIAH AGUILAR MD Dec 23, 2016 17:36
--- NOTE | 2016-12-23 17:38 | PD.PPDC ---
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
[2016-12-23] MEDS ORDERED: IBUP800T25 PO (17:39)
[2016-12-23] MEDS ORDERED: Oxycodone/Acetamin (5/325) PO (17:39)
[2016-12-24] MEDS: CEFAZOLIN 2 GM/50 ML (PMX) 50 ML IVPB SCH (02:00)
[2016-12-24 03:58] VITALS: BP 103/58; PULSE 77; RESP 19
[2016-12-24] MEDS: CLINDAMYCIN 300 MG CAP PO SCH ×3 (05:32→12:20)
[2016-12-24] MEDS: IBUPROFEN 800 MG TAB PO SCH ×2 (05:32→13:31)
[2016-12-24 08:00] VITALS: BP 100/58; PULSE 72; RESP 19
[2016-12-24] MEDS ORDERED: DIPHTH/TET/ACEL PERTUSS (ADULT) 0.5 ML VIAL IM* ONE (09:00)
[2016-12-24] MEDS ORDERED: MEASLES,MUMPS,RUBELLA VACCINE INJ SC* ONE (09:00)
[2016-12-24] MEDS: SENNA/DOCUSATE NA (8.6MG/50MG) TAB PO SCH (09:11)
[2016-12-24] MEDS: ENOXAPARIN 40 MG/0.4 ML SYG SC SCH (09:11)
== END 2016-12-24 14:18 | disposition home or self-care (01) | DRG 765 ==
LOC: OBT 10:41 → L-D 10:41 → OBT 11:27 → L-D 11:29 → PP1 22:39
PROVIDERS: ADMIT Obstetrics & Gynecology; ATTEND Obstetrics & Gynecology
PROC: 10D00Z1 Extraction of Products of Conception, Low, Open Approach (ICD-10-PCS; principal; 2016-12-21 17:00)
DX: O34.211 Maternal care for low transverse scar from previous cesarean delivery (principal); O60.14X0 Preterm labor third trimester with preterm delivery third trimester, not applicable or unspecified; K83.1 Obstruction of bile duct; O26.62 Liver and biliary tract disorders in childbirth; Z3A.36 36 weeks gestation of pregnancy; Z37.0 Single live birth
CPT/HCPCS: 80076; 85025; 85610; 85730; 86592; 86850; 86900; 86901; 87340; 90715; 94760; 99464; G0463; J0690; J1650; J1885; J2274; J2370; J2590; J2765; J3010; J7120

== ENCOUNTER 2017-01-18 15:19 | Outpatient (CLI) | payer OTHER ==
[~2017-01-18] VITALS: Ht 160 cm; Wt 125.5 kg
[~2017-01-18 15:19] MED LIST changes: -EPHEDrine SULFATE 50 MG/5 ML SYG ONE; -FAMO20TA18 PO; +IBUP800T25 PO; -NIFEdipine PO; +Oxycodone/Acetamin (5/325) PO; -UDMYL PO
[2017-01-18 15:20] VITALS: BP 136/77; PULSE 79; RESP 18; Ht 160 cm; Wt 125.5 kg
--- NOTE | 2017-01-18 15:53 | PN ---
Date/Time of Note Date/Time of Note DATE: 01/18/17 TIME: 15:43 Assessment/Plan Assessment/Plan Assessment/Plan [facility] Progress Note Date of Service: 01/18/17 Today's Impression & Plan: Overall stable and doing well without major issues. Symptomatic cholelithiasis. Reviewed reasoning behind recommendation for lap shirley and obtained patient's consent. With above assessment, I've recommended the following for today: 1. Lap shirley Thank you again for your great care of this very pleasant patient and wonderful family. If there are any questions, please feel free to call me at [phone]. TOTAL VISIT TIME: 20 minutes of which more than half was spent in [id number] discussion with the patient, possibly including family, as well as coordination of care between multiple physicians and providers. Disclaimer: Inadvertent spelling or grammatical errors are likely due to EHR/ dictation software use and do not reflect on the overall quality of patient care. Updated Clinical Summary: UPDATED CLINICAL SUMMARY: A very pleasant 31-year-old lady, G2, P1, at 34 weeks , admitted with abdominal pain and rising liver function tests and liver injury parameters. Patient with 2 other visits and a brief admission 11/28/2016 to [facility] with abdominal pain as well. White blood cell count 10.0, platelets 205, CO2 19, creatinine 0.48. Total bilirubin 3.1, AST 236, ALT 178, alkaline phosphatase 169, total protein 6 and albumin 3.4 on 12/06/2016. Lipase 30 on admission. Hepatitis B surface antigen negative. Right upper quadrant ultrasound 05/04/2017 showed cholelithiasis with no obvious gallbladder wall thickening or pericholecystic fluid. Common bile duct measured at 10 mm. Delivered baby boy 12/21/16. CO-MORBIDITIES: 1. Second ; s/p of baby boy 12/21/16; first child is a girl, 5 years old in 2017 2. BMI 52.3. 3. History of abdominal pain and known cholelithiasis. 4. Status post . Subjective: No major events or complaints since d/c; no abd pain; no n/v/d; no sob or cp; + flatus; + BM and normal; + activity Objective: Vitals: See below Exam: GENERAL: On exam, the patient was sitting in a chair and appeared to be comfortable and in no acute distress. ABDOMEN: Soft, nontender and nondistended. There are no peritoneal signs or guarding. SKIN: Skin appears to be pink and feels warm to touch. NEUROLOGIC: Patient is awake, alert, and follows commands appropriately. THERESA WOLFF M.D. Jan 18, 2017 15:53
== END 2017-01-18 17:00 | disposition home or self-care (01) ==
LOC: HPC 15:19
PROVIDERS: ATTEND Transplant Surgery
DX: K80.20 Calculus of gallbladder without cholecystitis without obstruction (principal); R10.9 Unspecified abdominal pain
CPT/HCPCS: G0463

== ENCOUNTER 2017-01-24 07:05 | Day surgery (SDC) | payer OTHER ==
[2017-01-23 09:45] VITALS: BMI 48.4
[2017-01-24] VITALS (12 sets, daily range): BP systolic 92–117; BP diastolic 43–71; PULSE 46–82; RESP 11–24; Ht 160 cm; Wt 125.2 kg
[~2017-01-24] VITALS: Ht 160 cm; Wt 125.2 kg
[~2017-01-24 07:05] MED LIST changes: +ACETAMINOPHEN 1000 MG/100 ML IVPB ONE; +CEFAZOLIN 1 GM INJ ONE; +CEFAZOLIN 2 GM/50 ML (PMX) 50 ML IVPB SCH; +D5W-0.45 NACL + KCL 20 MEQ 1,000 ML IV SCH; +GLYCOPYRROLATE 0.4 MG INJ ONE; +NEOSTIGMINE 3 MG/3 ML SYRINGE ONE
[2017-01-24] MEDS ORDERED: BUPIVACAINE 0.25%/EPI (SDV) 30 ML INJ ONE (07:16)
[2017-01-24] MEDS ORDERED: PROPOFOL 100 ML ONE (07:33)
--- NOTE | 2017-01-24 07:33 | HPN ---
Date/Time of Note Date/Time of Note DATE: 01/24/17 TIME: 07:32 Interval H&P Admission Note Pt. seen H&P reviewed: No system changes Pt. seen H&P reviewed. No system changes (I attest that I have seen and examined the patient and reviewed the operation in detail, as well as its risks , benefits and alternatives of the operation). I attest that I have seen and examined the patient and reviewed in detail the operation, and its associated risks, benefits and alternative. I have answered all the patient's questions to the best of my ability and the patient wishes to proceed. Please refer to rest of electronic medical record for additional updates. THERESA WOLFF M.D. Jan 24, 2017 07:33
[2017-01-24] MEDS ORDERED: ROCURONIUM 50 MG INJ ONE (07:34)
[2017-01-24] MEDS ORDERED: LIDOCAINE 2% (SDV) 5 ML INJ ONE (07:34)
[2017-01-24] MEDS ORDERED: BUPIVACAINE 0.25%/EPI (SDV) 30 ML INJ INJ ONE (08:25)
[2017-01-24] MEDS ORDERED: DEXAMETHASONE 4 MG/ML 1 ML INJ ONE (08:39)
[2017-01-24] MEDS ORDERED: ONDANSETRON 4 MG INJ ONE (09:24)
[2017-01-24] MEDS ORDERED: EPHEDrine SULFATE 50 MG/5 ML SYG IV PRN (09:30)
[2017-01-24] MEDS ORDERED: hydrALAzine 20 MG INJ IV PRN (09:30)
[2017-01-24] MEDS ORDERED: MEPERIDINE 25 MG INJ IV PRN (09:30)
[2017-01-24] MEDS ORDERED: LABETALOL HCL 20MG INJ IV PRN (09:30)
[2017-01-24] MEDS ORDERED: HYDROmorphONE (0.2 MG/ML) 10ML SYG IV PRN ×3 (09:30)
[2017-01-24] MEDS ORDERED: FENTAnyl 50 MCG/ML VIAL IV PRN ×3 (09:30)
[2017-01-24] MEDS ORDERED: ONDANSETRON 4 MG INJ IV PRN (09:30)
--- NOTE | 2017-01-24 09:58 | OPR ---
Date/Time of Note Date/Time of Note DATE: 01/24/17 TIME: 09:57 Operative Report Anesthesia: spinal Operative\Procedure Findings [facility] INPATIENT OPERATIVE NOTE PLACE OF SERVICE: [facility] DATE OF SURGERY: 01/24/2017 PREOPERATIVE DIAGNOSIS: 1. Symptomatic cholelithiasis 2. Second ; s/p of baby boy 12/21/16; first child is a girl, 5 years old in 2017 3. BMI 52.3. 4. History of abdominal pain and known cholelithiasis. 5. Status post . POSTOPERATIVE DIAGNOSIS: 1. Symptomatic cholelithiasis 2. Second ; s/p of baby boy 12/21/16; first child is a girl, 5 years old in 2017 3. BMI 52.3. 4. History of abdominal pain and known cholelithiasis. 5. Status post . OPERATION: 1. Laparoscopic cholecystectomy SURGEON: Theresa Wolff M.D. NEUROPSYCHOLOGY DIRECTOR: None ANESTHESIA: General endotracheal tube anesthesia ANESTHESIOLOGIST: Sophia Sargent M.D. BRIEF SUMMARY: An otherwise uncomplicated laparoscopic cholecystectomy was performed with findings of cholelithiasis. UPDATED CLINICAL SUMMARY: A very pleasant 31-year-old lady, G2, P1, at 34 weeks , admitted with abdominal pain and rising liver function tests and liver injury parameters. Patient with 2 other visits and a brief admission 11/28/2016 to [facility] with abdominal pain as well. White blood cell count 10.0, platelets 205, CO2 19, creatinine 0.48. Total bilirubin 3.1, AST 236, ALT 178, alkaline phosphatase 169, total protein 6 and albumin 3.4 on 12/06/2016. Lipase 30 on admission. Hepatitis B surface antigen negative. Right upper quadrant ultrasound 05/04/2017 showed cholelithiasis with no obvious gallbladder wall thickening or pericholecystic fluid. Common bile duct measured at 10 mm. Delivered baby boy 12/21/16. CO-MORBIDITIES: 1. Second ; s/p of baby boy 12/21/16; first child is a girl, 5 years old in 2017 2. BMI 52.3. 3. History of abdominal pain and known cholelithiasis. 4. Status post . BRIEF HISTORY: The patient is a very pleasant 31-year-old lady with above- mentioned history who was admitted during her with symptomatic cholelithiasis. At that time, I recommended nonsurgical management, but I strongly recommended that we consider elective laparoscopic cholecystectomy after the of her child. Patient returned approximately a month to month and a half after the of her child and I obtained her consent for laparoscopic, possible open cholecystectomy. I met with the patient and counseled her regarding the possible options of treatment, and I reviewed the operation in detail as well as the risks, benefits, alternatives, and expected outcomes of this operation. After careful consideration of all the risks, benefits, and alternatives, the patient appeared to understand those risks and wished to proceed with surgery. For a detailed report of my consultation with patient, please refer to my separate consultation note. STATEMENT OF THE INFORMED CONSENT: The patient appeared to understand the risks of the operation to include, but not be limited to risk of postoperative pain and scar tissue, possible infection or bleeding requiring other interventions such as opening the wound, placement of drainage catheters, or other operative interventions; possible injury to surrounding to structures including bowel, bladder, bile duct, or blood vessels, or solid organs such as liver, kidney, or pancreas requiring other interventions or procedures; possible leakage of bile from surgical clip sites, suture lines, or worse, from common bile duct injury, causing significant increase in morbidity and mortality and requiring multiple interventions including but not limited to, placement of drainage catheters, imaging studies, as well as operative interventions; possible other source of sepsis such as urinary tract infections or pneumonias, or other sources of potentially life threatening problems such as deep venous thrombus formation causing pulmonary embolism, myocardial arrhythmias and infarctions, and even . After careful consideration of all their options, the patient and family appeared to understand and wished to proceed with surgery. DESCRIPTION OF PROCEDURE: After obtaining informed consent, the patient was brought into the operating room and was placed in a normal supine position, where successful general endotracheal tube anesthesia was performed. The patient 's abdominal skin was prepped and draped, from the nipple line down to the level of the groins, in the usual sterile fashion. Intravenous access was already in place, and appropriately chosen and dosed prophylactic intravenous antimicrobials were administered. We then called a surgical time-out where patient's identification, date of , nature of the operation, allergies, presence of intravenous antimicrobials, presence of needed equipment, and any other concerns were reviewed and agreed upon by all members of the operating room team. We then started the operation by placing a 5-mm skin incision in the right- upper quadrant, subcostal midclavicular line, and introduced a 5-mm [employer] trocar into the peritoneal space, visualizing all the layers of the abdominal wall as we entered. Note that there was no indication of any injury to underlying structures once we entered the peritoneum. We insufflated the abdominal cavity to a maximum pressure of 15 mmHg, again, confirmed lack of any injury to underlying structures prior to visualizing the rest of the abdominal cavity. We found the fundus of the gallbladder to be visible. There was no evidence of malignancy. No evidence of calcifications or significant issues with adhesions, or other abnormalities. The liver appeared to be healthy. With this information, we went a head and placed the other trocars under direct visualization, after injecting their sites with 0.25% Marcaine with epinephrine , placing a 5-mm trocar in the umbilical midline area, a 5-mm trocar in the right anterior axillary line, and a 12-mm trocar in the midline subxiphoid region. With our instruments in place, we had excellent visualization and access to the right-upper quadrant. We then we grasped the fundus of the gallbladder and pointed up towards the right-upper quadrant. There was mild omental adhesions onto the infundibulum which we took down with judicious use of cautery, as well as meticulous blunt dissection. We were then able to grasp the infundibulum and pull it out in order to expose the critical triangle of Calot. We then placed our usual serosal cuts along the long axis of the gallbladder 1 cm away from its attachment to the liver bed up towards the fundus, and then joined these 2 lines under the infundibulum, taking care not to deliver any energy to underlying structures. We then attempted to dissect in the triangle of Calot low, but because of amount of inflammation in the area, and to maximize the degree of safety of the operation, I decided to take the gallbladder top-down which we accomplished using cautery. We then performed meticulous dissection to identify and circumferentially isolate both the cystic duct and cystic artery , prior to transecting them between 2 surgical Endoclips, proximally and one distally on the cystic artery and using a 45 mm Endo JOVANNY vascular (white) stapler to come across the cystic duct given the slightly increased diameter of the cystic duct compared to our available 10 mm clip clip electrocardiograph technician. These transections were all done after making sure that these were the only 2 structures going into the gallbladder. We then shaved the gallbladder off the gallbladder bed using cautery, and then delivered it out inside of an EndoCatch bag through the 12-mm trocar site without enlarging the fascia or contaminating the wound. The gallbladder was sent to Pathology for evaluation. Returning to the abdominal cavity, we ensured that there was adequate hemostasis and bile-stasis prior to removal of all of or equipment, including the pneumoperitoneum, and then reapproximating the 12-mm trocar site with one [id number] 0 Vicryl suture, followed by washing the wounds with copious amounts of normal saline, and then reapproximating the skin using interrupted 4- 0 Monocryl sutures. Light dressing was then applied. At the end of the operation, both the sponge count and needle count were reportedly correct x2. The patient tolerated the procedure without any reported complications. ESTIMATED BLOOD LOSS: 10 mL BLOOD OR BLOOD PRODUCT TRANSFUSIONS: None to my knowledge. SPECIMENS: 1. Gallbladder COMPLICATIONS: None. DISPOSITION: Recovery area. Disclaimer: Inadvertent spelling and grammatical errors are likely due to EHR/ dictation software use and do not reflect on the quality of delivered patient care. THERESA WOLFF M.D. Jan 24, 2017 09:58
[2017-01-24] MEDS ORDERED: DOCUSATE SODIUM 100 MG CAP PO PRN (10:00)
[2017-01-24] MEDS ORDERED: BISACODYL 10 MG SUPP PR PRN (10:00)
[2017-01-24] MEDS ORDERED: HYDROCODONE/APAP (5/325) TAB PO PRN ×2 (10:00)
== END 2017-01-24 12:30 | disposition home or self-care (01) ==
LOC: SDS 07:05
PROVIDERS: ATTEND Transplant Surgery
DX: K80.10 Calculus of gallbladder with chronic cholecystitis without obstruction (principal); E66.9 Obesity, unspecified; Z68.42 Body mass index [BMI] 45.0-49.9, adult
CPT/HCPCS: 47562; 86850; 86900; 86901; 88304; J0131; J0690; J1100; J2405; J2710; J3010; Z7512; Z7610

== ENCOUNTER 2017-02-08 14:27 | Outpatient (CLI) | payer OTHER ==
[~2017-02-08] VITALS: Ht 152.4 cm; Wt 127.7 kg
[~2017-02-08 14:27] MED LIST changes: +ACET500T98 PO; -ACETAMINOPHEN 1000 MG/100 ML IVPB ONE; -CEFAZOLIN 1 GM INJ ONE; -CEFAZOLIN 2 GM/50 ML (PMX) 50 ML IVPB SCH; -D5W-0.45 NACL + KCL 20 MEQ 1,000 ML IV SCH; +FAMO20TA18 PO; -GLYCOPYRROLATE 0.4 MG INJ ONE; -NEOSTIGMINE 3 MG/3 ML SYRINGE ONE; +NIFEdipine PO; +NITR-58 PO; +UDMYL PO
[2017-02-08 14:42] VITALS: BP 133/67; PULSE 74; RESP 18; Ht 152.4 cm; Wt 127.7 kg
--- NOTE | 2017-02-08 16:41 | PN ---
Date/Time of Note Date/Time of Note DATE: 02/08/17 TIME: 16:36 Assessment/Plan Assessment/Plan Assessment/Plan [facility] Progress Note Date of Service: 02/08/17 Today's Impression & Plan: Overall doing well post op without major issues. No major wound problems. With above assessment, I've recommended the following for today: 1. F/u with PCP 2. F/u with us prn Thank you again for your great care of this very pleasant patient and wonderful family. If there are any questions, please feel free to call me at [phone]. TOTAL VISIT TIME: 20 minutes of which more than half was spent in [id number] discussion with the patient, possibly including family, as well as coordination of care between multiple physicians and providers. Disclaimer: Inadvertent spelling or grammatical errors are likely due to EHR/ dictation software use and do not reflect on the overall quality of patient care. Updated Clinical Summary: A very pleasant 31-year-old lady, G2, P1, at 34 weeks , admitted with abdominal pain and rising liver function tests and liver injury parameters. Patient with 2 other visits and a brief admission 11/28/2016 to [facility] with abdominal pain as well. White blood cell count 10.0, platelets 205, CO2 19, creatinine 0.48. Total bilirubin 3.1, AST 236, ALT 178, alkaline phosphatase 169, total protein 6 and albumin 3.4 on 12/06/2016. Lipase 30 on admission. Hepatitis B surface antigen negative. Right upper quadrant ultrasound 05/04/2017 showed cholelithiasis with no obvious gallbladder wall thickening or pericholecystic fluid. Common bile duct measured at 10 mm. Delivered baby boy 12/21/16. S/p lap shirley 01/25/16 for chronic cholecystitis and cholelithiasis and no malignancy. CO-MORBIDITIES: 1. Second ; s/p of baby boy 12/21/16; first child is a girl, 5 years old in 2017 2. BMI 55 (previously 52.3 01/25/16). 3. History of abdominal pain and known cholelithiasis. 4. Status post . 5. S/p lap shirley 01/25/16 for chronic cholecystitis and cholelithiasis and no malignancy. Subjective: No major events or complaints; no abd pain and not taking pain medications; no n /v/d; no sob or cp; + flatus; + BM and normal; + activity Objective: Vitals: See below Exam: GENERAL: On exam, the patient was sitting in a chair and appeared to be comfortable and in no acute distress. ABDOMEN: Soft, nontender and nondistended. Incisions are clean, dry and intact without any evidence of erythema, edema, discharge, or hernia. There are no peritoneal signs or guarding. SKIN: Skin appears to be pink and feels warm to touch. NEUROLOGIC: Patient is awake, alert, and follows commands appropriately. Exam/Review of Systems Vital Signs Vitals Vital Signs Date Time Temp Pulse Resp B/P Pulse Ox O2 Delivery O2 Flow Rate FiO2 02/08/17 14:42 97.9 74 18 133/67 96 Room Air THERESA WOLFF M.D. Feb 08, 2017 16:41
== END 2017-02-08 16:52 | disposition home or self-care (01) ==
LOC: HPC 14:27
PROVIDERS: ATTEND Transplant Surgery
DX: Z48.815 Encounter for surgical aftercare following surgery on the digestive system (principal); Z90.49 Acquired absence of other specified parts of digestive tract
CPT/HCPCS: G0463